=== PATIENT | female | born 1975 | race African-American/Black ===

== ENCOUNTER 2016-08-29 16:06 | Inpatient (IN) | payer MEDICAID, OTHER ==
[2016-08-29] VITALS (9 sets, daily range): BP systolic 141–205; BP diastolic 77–110; PULSE 113–130; RESP 18–37; TEMP 97.5; O2SAT 90–100
[~2016-08-29] VITALS: Ht 160 cm; Wt 87.0 kg
[2016-08-29] MEDS ORDERED: KETAMINE HCL 500 MG/5 ML VIAL IV PUSH ONE (16:30)
[2016-08-29 16:44] LABS: BLOOD GAS BASE EXCESS -6.4 mmol/L (-2-2); BLOOD GAS CARBOXYHEMOGLOBIN 0.8 % (0-4); BLOOD GAS HCO3 17 mmol/L (22-26); BLOOD GAS METHEMOGLOBIN 1.4 % (0-2); BLOOD GAS O2 HGB SATURATION 97 % (90-100); BLOOD GAS OXYGEN CONTENT 18.2 Vol % (12.0-20.0); BLOOD GAS PCO2 23 mmHg (38-42); BLOOD GAS PO2 140 mmHG (61-120); BLOOD GAS TOTAL HGB 13.2 G/DL (12.0-16.0); CRITICAL VALUE YES; DRAW SITE RT RADIAL; FIO2 50 %; NUMBER OF ARTERIAL PUNCTURES 1; OXYGEN DEVICE BiPAP; STAT YES; TEMP CORR TO 98.6; ULNAR PULSE PRESENT; VENT SETTINGS IPAP10/EPAP5
[2016-08-29 16:45] LABS: AUTOMATED NEUTROPHIL # 11.9 TH/MM3 (1.8-7.7); BASOPHIL # 0.1 TH/MM3 (0-0.2); BASOPHIL % 0.7 % (0.0-2.0); EOSINOPHIL # 0.2 TH/MM3 (0-0.4); EOSINOPHIL % 1.5 % (0.0-4.0); HEMATOCRIT 38.5 % (35.0-46.0); HEMO FLAGS DIFF FINAL; LYMPH % 23.2 % (9.0-44.0); MEAN CELL VOLUME 84.8 FL (80.0-100.0); MEAN CORPUSCULAR HEMOGLOBIN 29.4 PG (27.0-34.0); MEAN CORPUSCULAR HGB CONC 34.6 % (32.0-36.0); NEUT % 69.6 % (16.0-70.0); PLATELET COUNT 378 TH/MM3 (150-450); RED BLOOD COUNT 4.54 MIL/MM3 (4.00-5.30); RED CELL DISTRIBUTION WIDTH 14.5 % (11.6-17.2); WHITE BLOOD COUNT 17.1 TH/MM3 (4.0-11.0)
[2016-08-29] MEDS: RESP: ALBUTEROL 2.5 MG/IPRATROPIUM 0.5 MG NEB (SCH) INH ×3 (16:59→23:18)
[2016-08-29 17:09] LABS: BICARBONATE 17.8 MEQ/L (21.0-32.0); POTASSIUM 3.5 MEQ/L (3.5-5.1)
[2016-08-29] MEDS ORDERED: AZITHROMYCIN INJ 500 MG in SODIUM CHLOR 0.9% 250 ML INJ 250 ML IV STA (17:13)
[2016-08-29] MEDS ORDERED: cefTRIAXone INJ 2,000 MG in SODIUM CHLORIDE 0.9% INJ 100 ML IV STA (17:13)
[2016-08-29] MEDS ORDERED: METOPROLOL TARTRATE 5 MG/5 ML VIAL IV PUSH ONE (17:15)
--- NOTE | 2016-08-29 17:21 | RADRPT ---
EXAM DATE/TIME: 08/29/2016 16:35 [facility] COMPARISON: No previous studies available for comparison. INDICATIONS : Shortness of breath, respiratory failure. MEDICAL HISTORY : None. SURGICAL HISTORY : None. ENCOUNTER: Initial ACUITY: 1 day PAIN SCORE: 10/10 LOCATION: Bilateral chest FINDINGS: A single view of the chest demonstrates minimal basilar atelectasis. No dense consolidation. No effus ion. No pneumothorax. CONCLUSION: 1. Minimal basilar atelectasis. No consolidation or effusion. Cuco Beckett MD on August 29, 2016 at 17:18 Board Certified Radiologist. This report was verified electronically.
[2016-08-29] MEDS ORDERED: SODIUM CHLOR 0.9% 1000 ML INJ 1,000 ML IV ONE ×3 (17:40)
--- NOTE | 2016-08-29 17:58 | PD ---
HPI Chief Complaint: Respiratory Distress Time Seen by Provider: 16:19 Travel History International Travel<30 days: No Contact w/Intl Traveler<30days: No Traveled to known affect area: No History of Present Illness HPI 40-year-old female with history of HTN, asthma here with respiratory distress. History limited due to her respiratory distress. From what I can gather between patient and EMS she's been ill since February with "bronchitis". Today while at work she had worsening symptoms with increasing wheezing and shortness of breath and EMS was called. Her O2 sats were always normal the patient had significant respiratory distress with increased work of breathing, wheezing throughout. She was given Solu-Medrol and albuterol 3 in route with no improvement of her symptoms. Patient given 1 g of magnesium IV. When I evaluated patient upon emergency department arrival she is quite dyspneic and speaking only and 2 word sentences. She was emergently room. Patient denies any fevers or chills. She's been having a cough productive primarily of clear phlegm. PFSH Past Medical History Asthma: Yes Respiratory: Yes (asthma) ?: Not Past Surgical History Surgical History: Unable to Obtain Social History Alcohol Use: No Tobacco Use: No Substance Use: No Allergies-Medications (Allergen,Severity, Reaction): Coded Allergies: UNOBTAINABLE (Unverified , 08/29/16) Review of Systems ROS Limitations: Clinical Condition Except as stated in HPI: all other systems reviewed are Neg Physical Exam Exam Limitations: Clinical Condition Narrative GENERAL: female in moderate to severe respiratory distress SKIN: Focused skin assessment warm/dry. HEAD: Normocephalic. EYES: No scleral icterus. No injection or drainage. ENT: Mucous membranes pink and moist. NECK: Supple CARDIOVASCULAR: Tachycardic with heart rate in the 150s, regular rhythm No murmur appreciated. RESPIRATORY: Moderate to severe respiratory distress with increased work of breathing, respiratory rate in the 40s to low 50s, diffuse wheezing and rhonchi with poor air movement GASTROINTESTINAL: Abdomen soft, non-tender, nondistended. MUSCULOSKELETAL: No obvious deformities. No edema. NEUROLOGICAL: Awake and alert. Motor grossly within normal limits. Normal speech. PSYCHIATRIC: Anxious Data Data Last Documented VS Vital Signs Date Time Temp Pulse Resp B/P Pulse Ox O2 Delivery O2 Flow Rate FiO2 08/29/16 16:41 99 50 08/29/16 16:37 BiPAP 08/29/16 16:35 130 37 205/110 08/29/16 16:26 97.5 Orders Complete Blood Count With Diff (08/29/16 16:19) Basic Metabolic Panel (Bmp) (08/29/16 16:19) Arterial Blood Gas (Abg) (08/29/16 16:19) Influenzae A/B Antigen (08/29/16 16:19) Blood Culture (08/29/16 16:19) Iv Access Insert/Monitor (08/29/16 16:19) Electrocardiogram (08/29/16 16:19) Ecg Monitoring (08/29/16 16:19) Oximetry (08/29/16 16:19) Oxygen Administration (08/29/16 16:19) Chest, Single Ap (08/29/16 16:19) Sodium Chloride 0.9% Flush (Ns Flush) (08/29/16 16:30) Albuterol-Ipratropium Neb (Duoneb Neb) (08/29/16 16:30) Resp Bipap / Cpap Non Invas Vt (08/29/16 16:19) Lactic Acid Sepsis Protocol (08/29/16 16:19) Ketamine Inj (Ketalar Inj) (08/29/16 16:30) Ceftriaxone Inj (Rocephin Inj) (08/29/16 17:13) Azithromycin Inj (Zithromax Inj) (08/29/16 17:13) Metoprolol Tartrate Inj (Lopressor Inj) (08/29/16 17:15) Sodium Chlor 0.9% 1000 Ml Inj (Ns 1000 M (08/29/16 17:40) Sodium Chlor 0.9% 1000 Ml Inj (Ns 1000 M (08/29/16 17:40) Sodium Chlor 0.9% 1000 Ml Inj (Ns 1000 M (08/29/16 17:40) Admit Order (Ed Use Only) (08/29/16 17:48) Lorazepam Inj (Ativan Inj) (08/29/16 18:00) Labs Laboratory Tests Test 08/29/16 08/29/16 08/29/16 16:25 16:30 16:45 White Blood Count 17.1 TH/MM3 Red Blood Count 4.54 MIL/MM3 Hemoglobin 13.3 GM/DL Hematocrit 38.5 % Mean Corpuscular Volume 84.8 FL Mean Corpuscular Hemoglobin 29.4 PG Mean Corpuscular Hemoglobin 34.6 % Concent Red Cell Distribution Width 14.5 % Platelet Count 378 TH/MM3 Mean Platelet Volume 7.7 FL Neutrophils (%) (Auto) 69.6 % Lymphocytes (%) (Auto) 23.2 % Monocytes (%) (Auto) 5.0 % Eosinophils (%) (Auto) 1.5 % Basophils (%) (Auto) 0.7 % Neutrophils # (Auto) 11.9 TH/MM3 Lymphocytes # (Auto) 4.0 TH/MM3 Monocytes # (Auto) 0.9 TH/MM3 Eosinophils # (Auto) 0.2 TH/MM3 Basophils # (Auto) 0.1 TH/MM3 CBC Comment DIFF FINAL Differential Comment Sodium Level 136 MEQ/L Potassium Level 3.5 MEQ/L Chloride Level 105 MEQ/L Carbon Dioxide Level 17.8 MEQ/L Anion Gap 13 MEQ/L Blood Urea Nitrogen 8 MG/DL Creatinine 1.31 MG/DL Estimat Glomerular Filtration 45 ML/MIN Rate Random Glucose 162 MG/DL Calcium Level 8.9 MG/DL Blood Gas Puncture Site RT RADIAL Blood Gas Patient Temperature 98.6 Blood Gas HCO3 17 mmol/L Blood Gas Base Excess -6.4 mmol/L Blood Gas Oxygen Saturation 97 % Arterial Blood pH 7.48 Arterial Blood Partial 23 mmHg Pressure CO2 Arterial Blood Partial 140 mmHG Pressure O2 Arterial Blood Oxygen Content 18.2 Vol % Arterial Blood 0.8 % Carboxyhemoglobin Arterial Blood Methemoglobin 1.4 % Blood Gas Hemoglobin 13.2 G/DL Oxygen Delivery Device BiPAP Blood Gas Ventilator Setting IPAP10/EPAP5 Blood Gas Inspired Oxygen 50 % Lactic Acid Level 3.1 mmol/L [facility] Medical Decision Making Medical Screen Exam Complete: Yes Emergency Medical Condition: Yes Medical Record Reviewed: Yes Differential Diagnosis 40-year-old female with history of HTN, asthma here with complaint of "bronchitis" since February and increasing asthma type symptoms today. Differential includes status asthmaticus, pneumonia, bronchitis, influenza, viral syndrome, sepsis, arrhythmia, symptomatic anemia, electrolyte abnormality. Narrative Course Patient was placed on monitor, IV established and blood obtained. Given her work of breathing she was placed on BiPAP with in-line duo nebs 3. Patient was given 20 mg of ketamine IV for bronchodilatation and anxiolysis with BiPAP. ABG was obtained showing pH 7.475, PCO2 22.8, PO2 140, bicarbonate 16.5. Portable chest x-ray obtained that by my read shows no evidence of pulmonary infiltrate. CBC, BMP, lactate, blood cultures obtained and notable for WBC 17.1 with lactate 3.1. Bicarbonate 17.8. Patient was empirically treated with Rocephin and azithromycin, 30 mg/kg normal saline bolus for pulmonary source sepsis. She is improving on BiPAP clinically with decreased work of breathing though she remains tachypneic in the 40s. She remains hypertensive and was given 5 mg of metoprolol, 1 mg Ativan with improvement of vital signs and work of breathing. Given her persistent requirement for BiPAP patient will be admitted to service provider for further management of status asthmaticus and sepsis. Critical Care Narrative Aggregate critical care time was 55 minutes. Time to perform other separately billable procedures was not included in the critical care time. My time did not include minutes spent treating any other patients simultaneously or on activities that did not directly contribute to the patient's treatment. The services I provided to this patient were to treat and/or prevent clinically significant deterioration that could result in: Cardio pulmonary decompensation , , disability I provided critical care services requiring my management, as noted below: Chart data review, documentation time, medication orders and management, vital sign assessments/reviewing monitor data, ordering and reviewing lab tests, ordering and interpreting/reviewing x-rays and diagnostic studies, care of the patient and discussion of the patient with the admitting physicians. Sepsis Criteria SIRS Criteria (2 or more): Heart rate over 90, RR > 20 or PaCO2 < 32, WBC > 64468, < 4000 or > 10% bands Sepsis Criteria (SIRS+source): Infect source susp/known Severe Sepsis (+one): Lactate >2 Criteria Outcome: Meets SIRS criteria, Meets sepsis criteria, Meets severe sepsis criteria Diagnosis Primary Impression: Status asthmaticus Qualified Code: J45.902 - Asthma with status asthmaticus, unspecified asthma severity Additional Impression: Severe sepsis Admitting Information Admitting Physician Requests: Admit Ange Benoit MD Aug 29, 2016 17:58
[2016-08-29] MEDS ORDERED: LORazepam 2 MG/ML VIAL IV PUSH ONE (18:00)
--- NOTE | 2016-08-29 18:27 | HHI.HP ---
HPI Service Critical Care Medicine Primary Care Physician Frankie Hazel, DO Admission Diagnosis status asthmaticus, sepsis Diagnosis: Travel History International Travel<30 Days: No Contact w/Intl Traveler <30 Da: No Traveled to Known Affected Are: No History of Present Illness History obtained from EMR, discussion with Dr. Krause, discussion with patient where she was able to answer with shaking head yes/no and speaking a few words. History is limited due to respiratory condition and BiPAP mask in place. 40 yo F with PMH of asthma, hypertension, obesity who presents to [facility] with shortness of breath. She states that she previously had no respiratory issues until February 2016. She states since then she has had recurrent episodes of "bronchitis" and has been on and off of prednisone tapers under the care of Dr. Dawson White with pulmonology. She states she has had PFTS consistent with asthma. She states she was at work and had just run to a code and became acutely short of breath. She states she is around secondhand smoke at work. She presented to [facility] emergency department with per E VAC with severe bronchospasm. She had normal room air sats upon E VAC arrival. She was given Solu-Medrol and albuterol nebs 3 per E VAC. Upon arrival to the emergency department she had severe wheezing and increased work of breathing. She was placed on BiPAP 10 over 5, given ketamine 20 mill grams IV, given DuoNeb 3, magnesium 1 g. test x-ray demonstrate some basilar atelectasis without consolidation. White blood cell count was 17. Lactic acid 3.1. Creatinine 1.31. She received 2 L normal saline bolus, azithromycin, Rocephin. She remains on BiPAP but reports significant subjective improvement since arrival to the emergency department. She denies any recent travel, leg swelling, personal or family history of thromboembolic disease, surgery. She states she has not been worked up for PE in the past. She did have cough productive of clear/white sputum. She denies fever, hemoptysis. She had pleuritic tight chest pain anteriorly without radiation. She was on a prednisone prior to admission for the last 4 days. Review of Systems ROS Limitations: Clinical Condition Past Family Social History Allergies: Coded Allergies: UNOBTAINABLE (Unverified , 08/29/16) Past Medical History Hypertension Asthma Obesity Her PMD is Dr. Hazel Her town manager is Dr. White Past Surgical History Bilateral tubal ligation Cholecystectomy Cryo-ablation of a cervical lesion Reported Medications She was uncertain of the doses of her medications but states that she will obtain them. She states she takes: Singulair Norvasc 2.5 mill grams by mouth twice a day Breo inhaler DuoNeb Albuterol Es Singulair Prednisone 4 days Family History She has 2 sons that had childhood asthma. She denies any family history of asthma in her parents or siblings. Social History She is a lifetime nonsmoker. She does have secondhand smoke exposure when she visits her mother's house and when she is at work. 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 GENERAL: Obese, well developed female who is sitting up in ED stretch, on Bipap SKIN: Warm and dry. HEAD: Atraumatic. Normocephalic. EYES: Pupils equal and round, 3mm reactive bilaterally. Mild bilateral conjunctival injection ENT: Bipap mask in place. NECK: Trachea midline. No JVD. CARDIOVASCULAR: Regular, tachycardic in the 120s, sinus tach on the monitor.. No murmurs rubs or gallops. RESPIRATORY: Tachypneic but without accessory muscle use. Speaking short sentences on bipap. Clear to auscultation bilaterally, currently without wheezing. No Rales or rhonchi. GASTROINTESTINAL: Abdomen soft, non-tender, nondistended. Bowel sounds present. MUSCULOSKELETAL: Extremities without clubbing, cyanosis, or edema. No obvious deformities. NEUROLOGICAL: Awake and alert. No obvious cranial nerve deficits. Motor grossly within normal limits. Laboratory Laboratory Tests Test 08/29/16 08/29/16 08/29/16 16:25 16:30 16:45 White Blood Count 17.1 Red Blood Count 4.54 Hemoglobin 13.3 Hematocrit 38.5 Mean Corpuscular Volume 84.8 Mean Corpuscular Hemoglobin 29.4 Mean Corpuscular Hemoglobin 34.6 Concent Red Cell Distribution Width 14.5 Platelet Count 378 Mean Platelet Volume 7.7 Neutrophils (%) (Auto) 69.6 Lymphocytes (%) (Auto) 23.2 Monocytes (%) (Auto) 5.0 Eosinophils (%) (Auto) 1.5 Basophils (%) (Auto) 0.7 Neutrophils # (Auto) 11.9 Lymphocytes # (Auto) 4.0 Monocytes # (Auto) 0.9 Eosinophils # (Auto) 0.2 Basophils # (Auto) 0.1 CBC Comment DIFF FINAL Differential Comment Sodium Level 136 Potassium Level 3.5 Chloride Level 105 Carbon Dioxide Level 17.8 Anion Gap 13 Blood Urea Nitrogen 8 Creatinine 1.31 Estimat Glomerular Filtration 45 Rate Random Glucose 162 Calcium Level 8.9 Blood Gas Puncture Site RT RADIAL Blood Gas Patient Temperature 98.6 Blood Gas HCO3 17 Blood Gas Base Excess -6.4 Blood Gas Oxygen Saturation 97 Arterial Blood pH 7.48 Arterial Blood Partial 23 Pressure CO2 Arterial Blood Partial 140 Pressure O2 Arterial Blood Oxygen Content 18.2 Arterial Blood 0.8 Carboxyhemoglobin Arterial Blood Methemoglobin 1.4 Blood Gas Hemoglobin 13.2 Oxygen Delivery Device BiPAP Blood Gas Ventilator Setting IPAP10/EPAP5 Blood Gas Inspired Oxygen 50 Lactic Acid Level 3.1 Date/Time Procedure Status Source Growth 08/29/16 16:45 Aerobic Blood Culture Received Blood Peripheral Pending 08/29/16 16:45 Anaerobic Blood Culture Received Blood Peripheral Pending Result Diagram: 08/29/16 1625 08/29/16 1625 Assessment and Plan Assessment and Plan NEURO: Anxiety Ativan 1 mg IV every 6 hours when necessary anxiety while on Bipap RESP: Acute respiratory failure Acute asthma exacerbation Second hand smoke exposure Bipap 10/5 50%, wean as tolerated DuoNeb every 4 hours. Albuterol every 2 hours as needed. Solu-Medrol 60 Mg IV Every 6 Hours. Continue Singulair Antibiotics As per below CTA Negative for Pulmonary Embolism. There is a very small left upper lobe infiltrate. There is right middle lobe atelectasis Pulmonology consult CV: Hypertension Sinus tachycardia Lactic acidemia secondary to asthma exacerbation Received 3 L normal saline in the emergency department. Was on D5 half NaCl with 20 mg KCl per liter at 70 miles per hour overnight. Will discontinue IV fluids. Continue Norvasc 2.5 mill grams by mouth twice a day. Follow-up 2-D echo. Serial cardiac markers negative GI: Morbid obesity Heart healthy diet FEN/RENAL: Acute kidney injury Higgins inserted to facilitate management of respiratory failure and to monitor intake and output. Follow-up BMP in a.m. ICU electrolyte replacement protocol ID Leukocytosis Leukocytosis may be reactive secondary to steroids. We'll continue empiric coverage with Rocephin and azithromycin for community acquired organisms HEME: D-Dimer Is 0.65. CTA negative as per above. Follow-up bilateral lower extremity ultrasound ENDO: Acute hyperglycemia Low-dose insulin sliding scale AC/hs while on steroids. PROPH: Lovenox 40 mg subcutaneous daily. Protonix 40 mg IV daily for stress ulcer prophylaxis ACCESS: Peripheral IV providing adequate access at this time Full code Patient updated at bedside. Patient re-examined in am. She is on NC, no wheezing, off Bipap since around 8 pm last night. She has been held in ED. Will downgrade to floor bed. Level 3 H and P Cari Badillo MD Aug 29, 2016 18:27
[2016-08-29] MEDS ORDERED: D5-1/2 NS + KCL 20 MEQ INJ 1,000 ML IV SCH (18:42)
[2016-08-29] MEDS ORDERED: CHLORHEXIDINE GLUCONATE 2 % 1 PACK (2 CLOTHS) TOP PRN (18:45)
[2016-08-29] MEDS ORDERED: MISCELLANEOUS NURSING INFORMATION XX SCH (18:45)
[2016-08-29] MEDS ORDERED: POTASSIUM PHOSPHATE INJ 30 MMOL in SODIUM CHLOR 0.9% 250 ML INJ 250 ML IV PRN (18:45)
[2016-08-29] MEDS ORDERED: SODIUM CHLORIDE 0.9% FLUSH 10 ML FLUSH PRN (18:45)
[2016-08-29] MEDS ORDERED: RESP: ALBUTEROL 2.5 MG/3 ML NEB (PRN) INH (18:45)
[2016-08-29] MEDS ORDERED: MORPHINE SULFATE 4 MG/ML INJ IV PRN (18:45)
[2016-08-29] MEDS ORDERED: MAGNESIUM SULFATE INJ 4 GM in SODIUM CHLORIDE 0.9% INJ 92 ML IV PRN (18:45)
[2016-08-29] MEDS ORDERED: SODIUM PHOSPHATE INJ 30 MMOL in SODIUM CHLOR 0.9% 250 ML INJ 240 ML IV PRN (18:45)
[2016-08-29] MEDS ORDERED: POTASSIUM CHLOR 40 MEQ PREMIX 100 ML IV PRN ×2 (18:45)
[2016-08-29] MEDS ORDERED: MAGNESIUM OXIDE 400 MG TAB PO PRN (18:45)
[2016-08-29] MEDS ORDERED: POTASSIUM PHOSPHATE MONOBASIC 500 MG TAB PO/TUBE PRN (18:45)
[2016-08-29] MEDS ORDERED: POTASSIUM CHLORIDE 25 MEQ EFFERVESCENT TAB PO PRN (18:45)
[2016-08-29] MEDS ORDERED: POTASSIUM PHOSPHATE MONOBASIC 500 MG TAB PO PRN (18:45)
[2016-08-29] MEDS ORDERED: POTASSIUM CHLOR 20 MEQ PREMIX 100 ML IV PRN ×2 (18:45)
[2016-08-29] MEDS ORDERED: ACETAMINOPHEN 325 MG TAB PO PRN (18:45)
[2016-08-29] MEDS ORDERED: MAGNESIUM SULFATE INJ 2 GM in SODIUM CHLORIDE 0.9% INJ 96 ML IV PRN (18:45)
[2016-08-29 19:02] LABS: LACTIC ACID GHOST NOT REPORTABLE
[2016-08-29] MEDS: SODIUM CHLORIDE 0.9% FLUSH 10 ML FLUSH SCH (20:21)
[2016-08-29] MEDS: DOCUSATE SODIUM 100 MG CAP PO SCH (20:21)
[2016-08-29] MEDS: methylPREDNISolone SOD SUCC 125 MG/2 ML VIAL IV PUSH SCH (20:32)
[2016-08-29] MEDS ORDERED: ASPIRIN 81 MG CHEW TAB CHEW ONE (22:00)
[2016-08-29] MEDS ORDERED: IOHEXOL 350 MG/ML 10 ML VIAL (for RAD DIAG) IV ONE (23:09)
[2016-08-29 23:18] LABS: CREATINE KINASE 90 U/L (26-192)
--- NOTE | 2016-08-29 23:22 | RADRPT ---
EXAM DATE/TIME: 08/29/2016 23:06 [facility] COMPARISON: No previous studies available for comparison. INDICATIONS : Shortness of breath. IV CONTRAST: 75 cc Omnipaque 350 (iohexol) IV RADIATION DOSE: 23.01 CTDIvol (mGy) MEDICAL HISTORY : Hypertension. Asthma. SURGICAL HISTORY : None. ENCOUNTER: Initial ACUITY: 1 day PAIN SCALE: 0/10 LOCATION: chest TECHNIQUE: Volumetric scanning of the chest was performed using a pulmonary embolism protocol MIP images were re constructed. Using automated exposure control and adjustment of the mA and/or kV according to patien t size, radiation dose was kept as low as reasonably achievable to obtain optimal diagnostic quality images. FINDINGS: PULMONARY ARTERIES: No filling defects are seen in the pulmonary arteries through the segmental level. LUNGS: There is partial collapse of the right middle lobe including the entire lateral segment. Small rounde d air ground glass infiltrate left upper lobe measuring 2 cm across previous small area of pneumonia. No concerning pulmonary nodule is visualized. PLEURAE: There is no pleural thickening or pleural effusion. MEDIASTINUM: There is good visualization of the great vessels of the middle mediastinum. No evidence of mediastin al or hilar adenopathy/mass. MUSCULOSKELETAL: Within normal limits for patient age. MISCELLANEOUS: The visualized upper abdominal organs demonstrate no acute abnormality. CONCLUSION: Normal examination of the pulmonary arteries. Partial collapse of the right middle lobe. Small infilt rate left upper lobe could be pneumonia or atelectasis. Jose Begum MD on August 29, 2016 at 23:18 Board Certified Radiologist. This report was verified electronically.
[2016-08-30] VITALS (12 sets, daily range): BP systolic 133–160; BP diastolic 67–91; PULSE 98–121; RESP 17–20; TEMP 98–98.1; O2SAT 93–97
[2016-08-30] MEDS: RESP: ALBUTEROL 2.5 MG/IPRATROPIUM 0.5 MG NEB (SCH) INH ×5 (02:57→19:37)
[2016-08-30] MEDS: methylPREDNISolone SOD SUCC 125 MG/2 ML VIAL IV PUSH SCH ×4 (03:05→20:02)
[2016-08-30] MEDS: CHLORHEXIDINE GLUCONATE 2 % 1 PACK (2 CLOTHS) TOP SCH (03:51)
[2016-08-30 04:42] LABS: AUTOMATED NEUTROPHIL # 18.2 TH/MM3 (1.8-7.7); BASOPHIL % 0.2 % (0.0-2.0); EOSINOPHIL % 0.1 % (0.0-4.0); HEMATOCRIT 34.8 % (35.0-46.0); HEMO FLAGS DIFF FINAL; LYMPH % 7.7 % (9.0-44.0); LYMPHOCYTE # 1.6 TH/MM3 (1.0-4.8); MEAN CELL VOLUME 85.8 FL (80.0-100.0); MEAN CORPUSCULAR HEMOGLOBIN 28.4 PG (27.0-34.0); MONO % 2.7 % (0.0-8.0); NEUT % 89.3 % (16.0-70.0); PLATELET COUNT 297 TH/MM3 (150-450); RED BLOOD COUNT 4.06 MIL/MM3 (4.00-5.30); RED CELL DISTRIBUTION WIDTH 14.2 % (11.6-17.2); WHITE BLOOD COUNT 20.3 TH/MM3 (4.0-11.0)
[2016-08-30 04:56] LABS: ALKALINE PHOSPHATASE 132 U/L (45-117); TOTAL BILIRUBIN ADULT 0.3 MG/DL (0.2-1.0)
[2016-08-30] MEDS: cefTRIAXone INJ 1,000 MG in SODIUM CHLORIDE 0.9% INJ 100 ML IV SCH ×2 (05:17→17:10)
[2016-08-30 05:23] LABS: ALT (GPT) 30 U/L (10-53); ANION GAP 9 MEQ/L (5-15); AST (GOT) 16 U/L (15-37); BICARBONATE 19.7 MEQ/L (21.0-32.0); BLOOD UREA NITROGEN 9 MG/DL (7-18); CHLORIDE 107 MEQ/L (98-107); GLOMERULAR FILTRATION RATE 76 ML/MIN (>89); SODIUM (NA) 136 MEQ/L (136-145)
[2016-08-30 06:31] LABS: CREATINE KINASE 88 U/L (26-192)
[2016-08-30] MEDS ORDERED: GLUCAGON 1 MG/ML VIAL OTHER PRN (08:00)
[2016-08-30] MEDS ORDERED: Vancomycin Consult Pharmacy 1 EA OTHER SCH (08:00)
[2016-08-30] MEDS ORDERED: DEXTROSE 50% IN WATER 50 ML VIAL(D50) IV PUSH PRN (08:00)
[2016-08-30] MEDS: DOCUSATE SODIUM 100 MG CAP PO SCH ×2 (08:48→20:01)
[2016-08-30] MEDS: PANTOPRAZOLE SODIUM 40 MG VIAL IV SCH (08:50)
[2016-08-30] MEDS: ENOXAPARIN SODIUM 40 MG/0.4 ML SYRINGE SQ SCH (08:56)
[2016-08-30] MEDS: amLODIPine BESYLATE 5 MG TAB PO SCH ×2 (08:56→20:00)
[2016-08-30] MEDS ORDERED: PILL SPLITTER OTHER PRN (09:00)
[2016-08-30] MEDS: SODIUM CHLORIDE 0.9% FLUSH 10 ML FLUSH SCH ×2 (09:03→20:01)
[2016-08-30] MEDS: INSULIN ASPART SUPPLEMENTAL SCALE SQ SCH ×3 (10:41→20:13)
--- NOTE | 2016-08-30 11:45 | EKG ---
Date Performed: 08/29/2016 Time Performed: 17:15:31 PTAGE: 40 years EKG: SINUS TACHYCARDIA WITH SHORT [place] INTERVAL, POSSIBLE ATRIAL FLUTTER ABNORMAL RHYTHM ECG NO PREVIOUS TRACING DOCTOR: Isaac Rich Interpretating Date/Time 08/30/2016 11:44:08
--- NOTE | 2016-08-30 12:07 | RADRPT ---
EXAM DATE/TIME: 08/30/2016 09:51 [facility] COMPARISON: No previous studies available for comparison. INDICATIONS : Thrombosis. Respiratory distress. MEDICAL HISTORY : Asthma. Hypertension. SURGICAL HISTORY : None. ENCOUNTER: Initial ACUITY: 4 - 6 months PAIN SCORE: 0/10 LOCATION: Bilateral leg. TECHNIQUE: Venous ultrasound of the left and right leg was performed from the inguinal ligament to the proximal calf. Real-time, color Doppler and spectral tracing, compression and augmentation techniques were us ed. FINDINGS: RIGHT LEG: There is normal compressibility of the deep venous system from the inguinal region to the proximal ca lf. No echogenic clot is seen in the lumen of the common femoral, femoral, popliteal, and posterior tibial veins. There is a normal response of the venous system to proximal and distal augmentation an d respiration. LEFT LEG: There is normal compressibility of the deep venous system from the inguinal region to the proximal ca lf. No echogenic clot is seen in the lumen of the common femoral, femoral, popliteal, and posterior tibial veins. There is a normal response of the venous system to proximal and distal augmentation an d respiration. CONCLUSION: Normal examination. Meg Harris MD on August 30, 2016 at 12:05 Board Certified Radiologist. This report was verified electronically.
[2016-08-30 12:37] LABS: CREATINE KINASE 90 U/L (26-192)
--- NOTE | 2016-08-30 15:15 | HHI.HP ---
History of Present Illness Primary Care Physician Frankie Hazel, DO Admission Diagnosis status asthmaticus, sepsis Diagnoses: History of Present Illness history of asthma problems with breathing/bronchitis x 2-3 mos treatd as an op with abx and steroids Sepsis Criteria Sepsis Criteria (SIRS+source): Infect source susp/known Review of Systems Respiratory: COMPLAINS OF: Cough, Wheezing Past Family Social History Allergies: Coded Allergies: UNOBTAINABLE (Unverified , 08/29/16) Past Medical History asthma hypertension Reported Medications Current Medications Medications (Trade) Dose Ordered Sig/Lady Route PRN Reason Start Time Stop Time Status Last Admin Dose Admin Sodium Chloride (NS Flush) 2 ml UNSCH PRN IVF FLUSH AFTER USING IV ACCESS 08/29/16 16:30 Lorazepam 1 mg 1 mg Q6H PRN IV PUSH ANXIETY 08/29/16 18:45 Potassium Chloride 100 ml @ 50 mls/hr Q2H PRN IV For Potassium 2.8 - 3.2 mEq/L 08/29/16 18:45 Potassium Chloride (KCl 20 Meq Premix Inj) 100 ml @ 50 mls/hr Q2H PRN IV For Potassium 2.8 - 3.2 mEq/L 08/29/16 18:45 Potassium Bicarb/ Potassium Chloride 50 meq 50 meq UNSCH PRN PO For Potassium 3.3 - 3.5 mEq/L 08/29/16 18:45 Potassium Chloride 100 ml @ 25 mls/hr UNSCH PRN IV For Potassium 3.3 - 3.5 mEq/L 08/29/16 18:45 Potassium Chloride 100 ml @ 50 mls/hr Q2H PRN IV For Potassium 3.3 - 3.5 mEq/L 08/29/16 18:45 Magnesium Sulfate/ Sodium Chloride (Magnesium Sulfate Inj/NS Inj) 100 ml @ 50 mls/hr UNSCH PRN IV For Magnesium 0.9 - 1.1 mg/dL 08/29/16 18:45 Magnesium Oxide 800 mg 800 mg UNSCH PRN PO For Magnesium 1.2 - 1.6 mg/dL 08/29/16 18:45 Magnesium Sulfate/ Sodium Chloride (Magnesium Sulfate Inj/NS Inj) 100 ml @ 50 mls/hr UNSCH PRN IV For Magnesium 1.2 - 1.6 mg/dL 08/29/16 18:45 Potassium Phosphate 2000 mg 2,000 mg Q4H PRN PO For Phosphorus < 2.5 mg/dL 08/29/16 18:45 Sodium Phosphate/ Sodium Chloride (Sodium Phosphate Inj/NS 250 ml Inj) 250 ml @ 42 mls/hr UNSCH PRN IV For Phosphorus < 2.5 mg/dL 08/29/16 18:45 Potassium Phosphate 2000 mg 2,000 mg UNSCH PRN PO/TUBE SEE LABEL COMMENTS 08/29/16 18:45 Potassium Phosphate/Sodium Chloride (Potassium Phosphate Inj/NS 250 ml Inj) 260 ml @ 42 mls/hr UNSCH PRN IV SEE LABEL COMMENTS 08/29/16 18:45 Sodium Chloride (NS Flush) 2 ml UNSCH PRN .XX FLUSH AFTER USING IV ACCESS 08/29/16 18:45 Sodium Chloride (NS Flush) 2 ml BID .XX 08/29/16 21:00 08/30/16 09:03 Acetaminophen (Tylenol) 650 mg Q6H PRN PO PAIN 1-10 AND/OR FEVER >101F 08/29/16 18:45 Acetaminophen/ Hydrocodone Bitart ([place] 5-325 Mg) 1 tab Q4H PRN PO PAIN SCALE 1 TO 5 08/29/16 18:45 Morphine Sulfate (Morphine Inj) 2 mg Q2H PRN IV PAIN SCALE 6 TO 10 08/29/16 18:45 Pantoprazole Sodium (Protonix Inj) 40 mg DAILY IV 08/30/16 09:00 08/30/16 08:50 Ondansetron HCl (Zofran Inj) 4 mg Q6H PRN IV NAUSEA OR VOMITING 08/29/16 18:45 Docusate Sodium (Colace) 100 mg BID PO 08/29/16 21:00 08/30/16 08:48 Miscellaneous Information 1 Q361D XX 08/29/16 18:45 Chlorhexidine Gluconate (Chlorhexidine 2% Cloth) 3 pack Taper DAILY@04 TOP 08/30/16 04:00 08/26/17 03:59 Chlorhexidine Gluconate (Chlorhexidine 2% Cloth) 3 pack UNSCH PRN TOP HYGIENIC CARE 08/29/16 18:45 Methylprednisolone Sodium Succinate (SoluMEDROL INJ) 60 mg Q6H IV PUSH 08/29/16 20:00 08/30/16 08:52 Azithromycin 500 mg 500 mg DAILY PO 08/30/16 17:00 Ceftriaxone Sodium/Sodium Chloride (Rocephin Inj/NS Inj) 100 ml @ 200 mls/hr Q12H IV 08/30/16 05:00 08/30/16 05:17 Dextrose (D50w (Vial) Inj) 25 ml UNSCH PRN IV PUSH HYPOGLYCEMIA-SEE COMMENTS 08/30/16 08:00 Glucagon (Glucagon Inj) 1 mg UNSCH PRN OTHER HYPOGLYCEMIA-SEE COMMENTS 08/30/16 08:00 Amlodipine Besylate (Norvasc) 2.5 mg BID PO 08/30/16 09:00 08/30/16 08:56 Montelukast Sodium (Singulair) 10 mg HS PO 08/30/16 21:00 Enoxaparin Sodium (Lovenox Inj) 40 mg Q24H SQ 08/30/16 09:00 08/30/16 08:56 Miscellaneous (Pill Splitter) 1 ea UNSCH PRN OTHER SEE LABEL COMMENTS 08/30/16 09:00 Pneumococcal Polyvalent Vaccine (Pneumovax-23 Inj) 25 mcg ONCE ONCE IM 08/31/16 10:00 08/31/16 10:01 Active Ordered Medications Current Medications Medications (Trade) Dose Ordered Sig/Lady Route PRN Reason Start Time Stop Time Status Last Admin Dose Admin Sodium Chloride (NS Flush) 2 ml UNSCH PRN IVF FLUSH AFTER USING IV ACCESS 08/29/16 16:30 Lorazepam 1 mg 1 mg Q6H PRN IV PUSH ANXIETY 08/29/16 18:45 Potassium Chloride 100 ml @ 50 mls/hr Q2H PRN IV For Potassium 2.8 - 3.2 mEq/L 08/29/16 18:45 Potassium Chloride (KCl 20 Meq Premix Inj) 100 ml @ 50 mls/hr Q2H PRN IV For Potassium 2.8 - 3.2 mEq/L 08/29/16 18:45 Potassium Bicarb/ Potassium Chloride 50 meq 50 meq UNSCH PRN PO For Potassium 3.3 - 3.5 mEq/L 08/29/16 18:45 Potassium Chloride 100 ml @ 25 mls/hr UNSCH PRN IV For Potassium 3.3 - 3.5 mEq/L 08/29/16 18:45 Potassium Chloride 100 ml @ 50 mls/hr Q2H PRN IV For Potassium 3.3 - 3.5 mEq/L 08/29/16 18:45 Magnesium Sulfate/ Sodium Chloride (Magnesium Sulfate Inj/NS Inj) 100 ml @ 50 mls/hr UNSCH PRN IV For Magnesium 0.9 - 1.1 mg/dL 08/29/16 18:45 Magnesium Oxide 800 mg 800 mg UNSCH PRN PO For Magnesium 1.2 - 1.6 mg/dL 08/29/16 18:45 Magnesium Sulfate/ Sodium Chloride (Magnesium Sulfate Inj/NS Inj) 100 ml @ 50 mls/hr UNSCH PRN IV For Magnesium 1.2 - 1.6 mg/dL 08/29/16 18:45 Potassium Phosphate 2000 mg 2,000 mg Q4H PRN PO For Phosphorus < 2.5 mg/dL 08/29/16 18:45 Sodium Phosphate/ Sodium Chloride (Sodium Phosphate Inj/NS 250 ml Inj) 250 ml @ 42 mls/hr UNSCH PRN IV For Phosphorus < 2.5 mg/dL 08/29/16 18:45 Potassium Phosphate 2000 mg 2,000 mg UNSCH PRN PO/TUBE SEE LABEL COMMENTS 08/29/16 18:45 Potassium Phosphate/Sodium Chloride (Potassium Phosphate Inj/NS 250 ml Inj) 260 ml @ 42 mls/hr UNSCH PRN IV SEE LABEL COMMENTS 08/29/16 18:45 Sodium Chloride (NS Flush) 2 ml UNSCH PRN .XX FLUSH AFTER USING IV ACCESS 08/29/16 18:45 Sodium Chloride (NS Flush) 2 ml BID .XX 08/29/16 21:00 08/30/16 09:03 Acetaminophen (Tylenol) 650 mg Q6H PRN PO PAIN 1-10 AND/OR FEVER >101F 08/29/16 18:45 Acetaminophen/ Hydrocodone Bitart ([place] 5-325 Mg) 1 tab Q4H PRN PO PAIN SCALE 1 TO 5 08/29/16 18:45 Morphine Sulfate (Morphine Inj) 2 mg Q2H PRN IV PAIN SCALE 6 TO 10 08/29/16 18:45 Pantoprazole Sodium (Protonix Inj) 40 mg DAILY IV 08/30/16 09:00 08/30/16 08:50 Ondansetron HCl (Zofran Inj) 4 mg Q6H PRN IV NAUSEA OR VOMITING 08/29/16 18:45 Docusate Sodium (Colace) 100 mg BID PO 08/29/16 21:00 08/30/16 08:48 Miscellaneous Information 1 Q361D XX 08/29/16 18:45 Chlorhexidine Gluconate (Chlorhexidine 2% Cloth) 3 pack Taper DAILY@04 TOP 08/30/16 04:00 08/26/17 03:59 Chlorhexidine Gluconate (Chlorhexidine 2% Cloth) 3 pack UNSCH PRN TOP HYGIENIC CARE 08/29/16 18:45 Methylprednisolone Sodium Succinate (SoluMEDROL INJ) 60 mg Q6H IV PUSH 08/29/16 20:00 08/30/16 08:52 Azithromycin 500 mg 500 mg DAILY PO 08/30/16 17:00 Ceftriaxone Sodium/Sodium Chloride (Rocephin Inj/NS Inj) 100 ml @ 200 mls/hr Q12H IV 08/30/16 05:00 08/30/16 05:17 Dextrose (D50w (Vial) Inj) 25 ml UNSCH PRN IV PUSH HYPOGLYCEMIA-SEE COMMENTS 08/30/16 08:00 Glucagon (Glucagon Inj) 1 mg UNSCH PRN OTHER HYPOGLYCEMIA-SEE COMMENTS 08/30/16 08:00 Amlodipine Besylate (Norvasc) 2.5 mg BID PO 08/30/16 09:00 08/30/16 08:56 Montelukast Sodium (Singulair) 10 mg HS PO 08/30/16 21:00 Enoxaparin Sodium (Lovenox Inj) 40 mg Q24H SQ 08/30/16 09:00 08/30/16 08:56 Miscellaneous (Pill Splitter) 1 ea UNSCH PRN OTHER SEE LABEL COMMENTS 08/30/16 09:00 Pneumococcal Polyvalent Vaccine (Pneumovax-23 Inj) 25 mcg ONCE ONCE IM 08/31/16 10:00 08/31/16 10:01 Family History father had diabetes mother had chf Social History non smoker occ drinker Physical Exam Vital Signs Vital Signs Date Time Temp Pulse Resp B/P Pulse Ox O2 Delivery O2 Flow Rate FiO2 08/30/16 11:30 121 18 153/75 96 Room Air 08/30/16 07:30 108 18 143/71 96 Nasal Cannula 3 08/30/16 07:29 96 Nasal Cannula 3.00 08/30/16 06:00 107 18 149/87 97 Nasal Cannula 3 08/30/16 05:00 111 18 137/72 95 Nasal Cannula 3 08/30/16 03:00 112 17 133/67 96 Nasal Cannula 3 08/30/16 01:00 109 17 146/91 97 Nasal Cannula 3 08/29/16 23:18 116 30 148/90 97 Nasal Cannula 4 08/29/16 21:50 113 18 141/84 100 Nasal Cannula 4 08/29/16 19:55 124 19 167/77 95 Aerosol Mask 08/29/16 19:51 97 Nasal Cannula 2.00 08/29/16 19:22 124 22 163/90 96 Nasal Cannula 4 08/29/16 18:22 114 30 145/90 98 BiPAP 50 08/29/16 16:41 99 50 08/29/16 16:37 99 BiPAP 50 08/29/16 16:35 130 37 205/110 98 BiPAP 50 08/29/16 16:26 97.5 120 34 200/104 90 Physical Exam GENERAL: This is a well-nourished, well-developed patient, in no apparent distress. SKIN: No rashes, ecchymoses or lesions. Cool and dry. HEAD: Atraumatic. Normocephalic. No temporal or scalp tenderness. EYES: Pupils equal round and reactive. Extraocular motions intact. No scleral icterus. No injection or drainage. ENT: Nose without bleeding, purulent drainage or septal hematoma. Throat without erythema, tonsillar hypertrophy or exudate. Uvula midline. Airway patent. NECK: Trachea midline. No JVD or lymphadenopathy. Supple, nontender, no meningeal signs. CARDIOVASCULAR: Regular rate and rhythm without murmurs, gallops, or rubs. RESPIRATORY: mildly diminished bilaterally with trace wheeze GASTROINTESTINAL: Abdomen soft, non-tender, nondistended. No hepato-splenomegaly , or palpable masses. No guarding. MUSCULOSKELETAL: Extremities without clubbing, cyanosis, or edema. No joint tenderness, effusion, or edema noted. No calf tenderness. Negative Homans sign bilaterally. NEUROLOGICAL: Awake and alert. Cranial nerves II through XII intact. Motor and sensory grossly within normal limits. Five out of 5 muscle strength in all muscle groups. Normal speech. Laboratory Laboratory Tests Test 08/29/16 08/29/16 08/29/16 08/29/16 16:25 16:30 16:45 19:15 White Blood Count 17.1 Red Blood Count 4.54 Hemoglobin 13.3 Hematocrit 38.5 Mean Corpuscular Volume 84.8 Mean Corpuscular Hemoglobin 29.4 Mean Corpuscular Hemoglobin 34.6 Concent Red Cell Distribution Width 14.5 Platelet Count 378 Mean Platelet Volume 7.7 Neutrophils (%) (Auto) 69.6 Lymphocytes (%) (Auto) 23.2 Monocytes (%) (Auto) 5.0 Eosinophils (%) (Auto) 1.5 Basophils (%) (Auto) 0.7 Neutrophils # (Auto) 11.9 Lymphocytes # (Auto) 4.0 Monocytes # (Auto) 0.9 Eosinophils # (Auto) 0.2 Basophils # (Auto) 0.1 CBC Comment DIFF FINAL Differential Comment Sodium Level 136 Potassium Level 3.5 Chloride Level 105 Carbon Dioxide Level 17.8 Anion Gap 13 Blood Urea Nitrogen 8 Creatinine 1.31 Estimat Glomerular Filtration 45 Rate Random Glucose 162 Calcium Level 8.9 Blood Gas Puncture Site RT RADIAL Blood Gas Patient Temperature 98.6 Blood Gas HCO3 17 Blood Gas Base Excess -6.4 Blood Gas Oxygen Saturation 97 Arterial Blood pH 7.48 Arterial Blood Partial 23 Pressure CO2 Arterial Blood Partial 140 Pressure O2 Arterial Blood Oxygen Content 18.2 Arterial Blood 0.8 Carboxyhemoglobin Arterial Blood Methemoglobin 1.4 Blood Gas Hemoglobin 13.2 Oxygen Delivery Device BiPAP Blood Gas Ventilator Setting [id number]/[id number] Blood Gas Inspired Oxygen 50 Lactic Acid Level 3.1 2.8 D-Dimer Quantitative (PE/DVT) 0.65 Test 08/29/16 08/30/16 08/30/16 22:10 04:23 11:34 Total Creatine Kinase 90 88 90 Troponin I LESS THAN 0.02 LESS THAN 0.02 LESS THAN 0.02 White Blood Count 20.3 Red Blood Count 4.06 Hemoglobin 11.5 Hematocrit 34.8 Mean Corpuscular Volume 85.8 Mean Corpuscular Hemoglobin 28.4 Mean Corpuscular Hemoglobin 33.0 Concent Red Cell Distribution Width 14.2 Platelet Count 297 Mean Platelet Volume 7.3 Neutrophils (%) (Auto) 89.3 Lymphocytes (%) (Auto) 7.7 Monocytes (%) (Auto) 2.7 Eosinophils (%) (Auto) 0.1 Basophils (%) (Auto) 0.2 Neutrophils # (Auto) 18.2 Lymphocytes # (Auto) 1.6 Monocytes # (Auto) 0.5 Eosinophils # (Auto) 0.0 Basophils # (Auto) 0.0 CBC Comment DIFF FINAL Differential Comment Sodium Level 136 Potassium Level 4.0 Chloride Level 107 Carbon Dioxide Level 19.7 Anion Gap 9 Blood Urea Nitrogen 9 Creatinine 0.98 Estimat Glomerular Filtration 76 Rate Random Glucose 210 Calcium Level 7.9 Total Bilirubin 0.3 Aspartate Amino Transf 16 (AST/SGOT) Alanine Aminotransferase 30 (ALT/SGPT) Alkaline Phosphatase 132 Total Protein 7.7 Albumin 3.2 Date/Time Procedure Status Source Growth 08/30/16 06:30 Influenza Types A,B Antigen (RICHELLE) - Final Complete Nasal Aspirate NEGATIVE FOR FLU A AND B ANTIGEN.... 08/29/16 16:45 Aerobic Blood Culture - Preliminary Resulted Blood Peripheral NO GROWTH IN 1 DAY 08/29/16 16:45 Anaerobic Blood Culture - Preliminary Resulted Blood Peripheral NO GROWTH IN 1 DAY Result Diagram: 08/30/16 0423 08/30/16 0423 Imaging Last 24 hours Impressions Lower Extremity Ultrasound 08/30/16 0600 Signed Impressions: Service Date/Time: Tuesday, August 30, 2016 09:51 - CONCLUSION: Normal examination. K. Shekhar Harris MD Chest X-Ray 08/29/16 1619 Signed Impressions: Service Date/Time: Monday, August 29, 2016 16:35 - CONCLUSION: 1. Minimal basilar atelectasis. No consolidation or effusion. Cuco Beckett MD Course improved in ED Assessment and Plan Problem List: (1) Status asthmaticus Status: Resolved (2) Severe sepsis Status: Acute Plan: admission with antibiotic therapy Problem Qualifiers (1) Status asthmaticus: Qualified Code: J45.902 - Asthma with status asthmaticus, unspecified asthma severity Frankie Hazel DO Aug 30, 2016 15:14
[2016-08-30] MEDS: AZITHROMYCIN 250 MG TAB PO SCH (17:09)
--- NOTE | 2016-08-30 19:01 | EC ---
Study Study Date:08/30/2016 STUDY CONCLUSIONS SUMMARY LEFT VENTRICLE: The cavity size was normal. Wall thickness was at the upper limits of normal. Systolic function was normal. The estimated ejection fraction was in the range of 65% to 70%. Wall motion was normal; there were no regional wall motion abnormalities. If LV function is below 40, please consider prescribing an ACEI or ARB or document rationale for non-use. PROCEDURE DATA STUDY STATUS: Elective. Procedure: Transthoracic echocardiography. Image quality was good. Scanning was performed from the parasternal, apical, and subcostal acoustic windows. Study completion: The patient tolerated the procedure well. Transthoracic echocardiography. M-mode, complete 2D, complete spectral Doppler, and color Doppler. Patient status: Inpatient. CARDIAC ANATOMY LEFT VENTRICLE: The cavity size was normal. Wall thickness was at the upper limits of normal. Systolic function was normal. The estimated ejection fraction was in the range of 65% to 70%. Wall motion was normal; there were no regional wall motion abnormalities. AORTIC VALVE: Trileaflet. Doppler: There was no stenosis. No significant regurgitation. Peak gradient: 13mm Hg (S). MITRAL VALVE: The valve appears to be grossly normal. Doppler: There was no evidence for stenosis. No significant regurgitation. Peak gradient: 2mm Hg (D). LEFT ATRIUM: The atrium was normal in size. RIGHT VENTRICLE: The cavity size was normal. Systolic function was normal. PULMONIC VALVE: Not well visualized. Doppler: There was no evidence for stenosis. No significant regurgitation. TRICUSPID VALVE: The valve appears to be grossly normal. Doppler: There was no evidence for stenosis. Trace regurgitation. PERICARDIUM: There was no pericardial effusion. BASIC MEASUREMENTS ADULT Normal Left ventricle LV internal dimension, ED, chordal level, *37.6 mm 43-52 PLAX LV internal dimension, ES, chordal level, 24.3 mm 23-38 PLAX Fractional shortening, chordal level, PLAX 35 % >29 LV posterior wall thickness, ED 8.42 mm IVS/LVPW ratio, ED *1.4 <1.3 Ventricular septum Septal thickness, ED 11.8 mm Left atrium Anterior-posterior dimension 29 mm Right ventricle RV internal dimension, ED, PLAX 20.6 mm 19-38 DOPPLER MEASUREMENTS ADULT Normal Aortic valve Peak velocity, S 179 cm/s Peak gradient, S 13 mm Hg Mitral valve Peak E-wave velocity 77.1 cm/s Peak A-wave velocity 98.1 cm/s Peak gradient, D 2 mm Hg Peak E/A ratio 0.8 Tricuspid valve Regurgitant peak velocity 200 cm/s Peak RV-RA gradient, S 16 mm Hg Maximal regurgitant velocity 200 cm/s LEGEND: Mean values are shown as u=mean value. Asterisk (*) curry values outside specified normal range. Prepared and signed by Gen Reveles [id number]
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
[2016-08-30] MEDS: MONTELUKAST SODIUM 10 MG TAB PO SCH (20:00)
[2016-08-30] MEDS: ONDANSETRON HCL 4 MG/2 ML VIAL IV PRN (20:03)
[2016-08-30] MEDS: LORazepam 2 MG/ML VIAL IV PUSH PRN (20:04)
[2016-08-31] VITALS (11 sets, daily range): BP systolic 133–159; BP diastolic 72–93; PULSE 93–117; RESP 16–21; TEMP 98–99.3; O2SAT 94–97
[2016-08-31] MEDS: RESP: ALBUTEROL 2.5 MG/IPRATROPIUM 0.5 MG NEB (SCH) INH ×7 (00:04→23:58)
[2016-08-31] MEDS: methylPREDNISolone SOD SUCC 125 MG/2 ML VIAL IV PUSH SCH ×4 (02:28→20:00)
[2016-08-31] MEDS: CHLORHEXIDINE GLUCONATE 2 % 1 PACK (2 CLOTHS) TOP SCH (04:00)
[2016-08-31] MEDS: cefTRIAXone INJ 1,000 MG in SODIUM CHLORIDE 0.9% INJ 100 ML IV SCH ×2 (05:07→17:48)
[2016-08-31] MEDS: INSULIN ASPART SUPPLEMENTAL SCALE SQ SCH ×4 (05:13→21:00)
[2016-08-31] MEDS: amLODIPine BESYLATE 5 MG TAB PO SCH ×2 (08:18→21:00)
[2016-08-31] MEDS: DOCUSATE SODIUM 100 MG CAP PO SCH ×2 (08:18→21:00)
[2016-08-31] MEDS: PANTOPRAZOLE SODIUM 40 MG VIAL IV SCH (08:18)
[2016-08-31] MEDS: ENOXAPARIN SODIUM 40 MG/0.4 ML SYRINGE SQ SCH (08:19)
[2016-08-31] MEDS: SODIUM CHLORIDE 0.9% FLUSH 10 ML FLUSH SCH ×2 (08:25→21:00)
[2016-08-31] MEDS: AZITHROMYCIN 250 MG TAB PO SCH (09:24)
[2016-08-31] MEDS: LORazepam 2 MG/ML VIAL IV PUSH PRN (09:25)
[2016-08-31] MEDS: ACETAMINOPHEN/HYDROcodone 325 MG/5 MG TAB PO PRN (09:25)
[2016-08-31] MEDS ORDERED: PNEUMOCOCCAL POLYVALENT INJ 25 MCG/0.5 ML SYR IM ONE (10:00)
--- NOTE | 2016-08-31 11:07 | HHI.PR ---
Subjective Remarks Patient seen at bedside. Reports tightness and SOB 35 % venti mask. No CP reported. Objective Vital Signs Date Time Temp Pulse Resp B/P Pulse Ox O2 Delivery O2 Flow Rate FiO2 08/31/16 09:07 95 Venturi Mask 35 08/31/16 07:15 108 08/31/16 06:15 98.2 96 18 148/88 95 08/31/16 00:09 99.1 113 18 133/85 97 08/30/16 20:58 98.0 118 18 160/91 95 08/30/16 20:21 98 08/30/16 19:37 96 Nasal Cannula 3.00 08/30/16 18:34 93 08/30/16 16:00 98.1 112 20 145/89 94 08/30/16 11:30 121 18 153/75 96 Room Air I/O 08/30/16 08/30/16 08/30/16 08/31/16 08/31/16 08/31/16 07:00 15:00 23:00 07:00 15:00 23:00 Output Total 3000 ml 1000 ml Balance -3000 ml -1000 ml Output Urine Total 3000 ml 1000 ml Result Diagram: 08/30/16 0423 08/30/16 0423 Imaging Last 72 hours Impressions Lower Extremity Ultrasound 08/30/16 0600 Signed Impressions: Service Date/Time: Tuesday, August 30, 2016 09:51 - CONCLUSION: Normal examination. K. Shekhar Harris MD Chest X-Ray 08/29/16 1619 Signed Impressions: Service Date/Time: Monday, August 29, 2016 16:35 - CONCLUSION: 1. Minimal basilar atelectasis. No consolidation or effusion. Cuco Beckett MD CT Angiography 08/29/16 0000 Signed Impressions: Service Date/Time: Monday, August 29, 2016 23:06 - CONCLUSION: Normal examination of the pulmonary arteries. Partial collapse of the right middle lobe. Small infiltrate left upper lobe could be pneumonia or atelectasis. Jose Begum MD Objective Remarks GENERAL: Alert and cooperative SKIN: Warm and dry. HEAD: Normocephalic. EYES: No scleral icterus. No injection or drainage. NECK: Supple, trachea midline. No JVD or lymphadenopathy. CARDIOVASCULAR: Regular rate and rhythm without murmurs, gallops, or rubs. RESPIRATORY: Breath sounds wheezy. No accessory muscle use. GASTROINTESTINAL: Abdomen soft, non-tender, nondistended. MUSCULOSKELETAL: No cyanosis, or edema. BACK: Nontender without obvious deformity. No CVA tenderness. Medications and IVs Current Medications Medications (Trade) Dose Ordered Sig/Lady Route Start Time Stop Time Status Last Admin (NS Flush) 2 ml UNSCH PRN IVF 08/29/16 16:30 Lorazepam 1 mg 1 mg Q6H PRN IV PUSH 08/29/16 18:45 08/31/16 09:25 Potassium Chloride 100 ml @ 50 mls/hr Q2H PRN IV 08/29/16 18:45 (KCl 20 Meq Premix Inj) 100 ml @ 50 mls/hr Q2H PRN IV 08/29/16 18:45 Potassium Bicarb/ Potassium Chloride 50 meq 50 meq UNSCH PRN PO 08/29/16 18:45 Potassium Chloride 100 ml @ 25 mls/hr UNSCH PRN IV 08/29/16 18:45 Potassium Chloride 100 ml @ 50 mls/hr Q2H PRN IV 08/29/16 18:45 (Magnesium Sulfate Inj/NS Inj) 100 ml @ 50 mls/hr UNSCH PRN IV 08/29/16 18:45 Magnesium Oxide 800 mg 800 mg UNSCH PRN PO 08/29/16 18:45 (Magnesium Sulfate Inj/NS Inj) 100 ml @ 50 mls/hr UNSCH PRN IV 08/29/16 18:45 Potassium Phosphate 2000 mg 2,000 mg Q4H PRN PO 08/29/16 18:45 (Sodium Phosphate Inj/NS 250 ml Inj) 250 ml @ 42 mls/hr UNSCH PRN IV 08/29/16 18:45 Potassium Phosphate 2000 mg 2,000 mg UNSCH PRN PO/TUBE 08/29/16 18:45 (Potassium Phosphate Inj/NS 250 ml Inj) 260 ml @ 42 mls/hr UNSCH PRN IV 08/29/16 18:45 (NS Flush) 2 ml UNSCH PRN .XX 08/29/16 18:45 08/31/16 02:29 (NS Flush) 2 ml BID .XX 08/29/16 21:00 08/31/16 08:25 (Tylenol) 650 mg Q6H PRN PO 08/29/16 18:45 ([place] 5-325 Mg) 1 tab Q4H PRN PO 08/29/16 18:45 08/31/16 09:25 (Morphine Inj) 2 mg Q2H PRN IV 08/29/16 18:45 08/30/16 19:06 (Protonix Inj) 40 mg DAILY IV 08/30/16 09:00 08/31/16 08:18 (Zofran Inj) 4 mg Q6H PRN IV 08/29/16 18:45 08/30/16 20:03 (Colace) 100 mg BID PO 08/29/16 21:00 08/31/16 08:18 Miscellaneous Information 1 Q361D XX 08/29/16 18:45 (Chlorhexidine 2% Cloth) 3 pack Taper DAILY@04 TOP 08/30/16 04:00 08/26/17 03:59 (Chlorhexidine 2% Cloth) 3 pack UNSCH PRN TOP 08/29/16 18:45 (SoluMEDROL INJ) 60 mg Q6H IV PUSH 08/29/16 20:00 08/31/16 08:19 Azithromycin 500 mg 500 mg DAILY PO 08/30/16 17:00 08/31/16 09:24 (Rocephin Inj/NS Inj) 100 ml @ 200 mls/hr Q12H IV 08/30/16 05:00 08/31/16 05:07 (D50w (Vial) Inj) 25 ml UNSCH PRN IV PUSH 08/30/16 08:00 (Glucagon Inj) 1 mg UNSCH PRN OTHER 08/30/16 08:00 (Norvasc) 2.5 mg BID PO 08/30/16 09:00 08/31/16 08:18 (Singulair) 10 mg HS PO 08/30/16 21:00 08/30/16 20:00 (Lovenox Inj) 40 mg Q24H SQ 08/30/16 09:00 08/31/16 08:19 (Pill Splitter) 1 ea UNSCH PRN OTHER 08/30/16 09:00 Assessment and Plan Problem List: (1) Asthma Status: Acute Plan: Pulmonary consulted and managing. Continue steroids, singular, and breathing treatments. PRN ativan available for anxiety (2) Severe sepsis Status: Acute Plan: Labs ordered for today. On antibiotics. (3) Hypertension Status: Acute Plan: B/P elevated. Norvasc increased. Assessment and Plan Assessment and plan discussed with Dr. Hazel Problem Qualifiers (1) Hypertension: Qualified Code: I10 - Essential hypertension Sadaf Gee Aug 31, 2016 11:07
[2016-08-31 12:34] LABS: ANION GAP 12 MEQ/L (5-15); AST (GOT) 25 U/L (15-37); BICARBONATE 21.3 MEQ/L (21.0-32.0); BLOOD UREA NITROGEN 16 MG/DL (7-18); CHLORIDE 102 MEQ/L (98-107); GLOMERULAR FILTRATION RATE 64 ML/MIN (>89); SODIUM (NA) 135 MEQ/L (136-145)
[2016-08-31 12:37] LABS: ALKALINE PHOSPHATASE 130 U/L (45-117); ALT (GPT) 40 U/L (10-53); TOTAL BILIRUBIN ADULT 0.6 MG/DL (0.2-1.0)
[2016-08-31 12:39] LABS: AUTOMATED NEUTROPHIL # 21.7 TH/MM3 (1.8-7.7); BASOPHIL # 0.1 TH/MM3 (0-0.2); BASOPHIL % 0.4 % (0.0-2.0); EOSINOPHIL % 0.1 % (0.0-4.0); HEMATOCRIT 33.7 % (35.0-46.0); HEMO FLAGS DIFF FINAL; LYMPH % 7.3 % (9.0-44.0); LYMPHOCYTE # 1.8 TH/MM3 (1.0-4.8); MEAN CELL VOLUME 84.3 FL (80.0-100.0); MEAN CORPUSCULAR HEMOGLOBIN 29.2 PG (27.0-34.0); MEAN CORPUSCULAR HGB CONC 34.7 % (32.0-36.0); MONO % 2.9 % (0.0-8.0); NEUT % 89.3 % (16.0-70.0); PLATELET COUNT 299 TH/MM3 (150-450); RED CELL DISTRIBUTION WIDTH 14.8 % (11.6-17.2); WHITE BLOOD COUNT 24.2 TH/MM3 (4.0-11.0)
[2016-08-31] MEDS ORDERED: PILL SPLITTER OTHER PRN (18:45)
--- NOTE | 2016-08-31 19:32 | HHI.PR ---
Subjective Remarks 40 YOAA female with Br asthma exac. bronchitis Feels better Had episode of SOB last night Occ cough Objective Vital Signs Vital Signs Date Time Temp Pulse Resp B/P Pulse Ox O2 Delivery O2 Flow Rate FiO2 08/31/16 16:05 99.0 109 20 142/72 95 08/31/16 12:06 99.3 110 20 133/86 95 08/31/16 09:07 95 Venturi Mask 35 08/31/16 08:06 98.2 93 21 159/91 97 08/31/16 07:15 108 08/31/16 06:15 98.2 96 18 148/88 95 08/31/16 00:09 99.1 113 18 133/85 97 08/30/16 20:58 98.0 118 18 160/91 95 08/30/16 20:21 98 08/30/16 19:37 96 Nasal Cannula 3.00 I/O 08/30/16 08/30/16 08/30/16 08/31/16 08/31/16 08/31/16 07:00 15:00 23:00 07:00 15:00 23:00 Intake Total 482 ml Output Total 3000 ml 1000 ml Balance -3000 ml -1000 ml 482 ml Intake Oral 480 ml IV Total 2 ml Output Urine Total 3000 ml 1000 ml # Voids 4 # Bowel Movements 1 Result Diagram: 08/31/16 1202 08/31/16 1202 Other Results GENERAL:WBWN AA female, NAD SKIN: Warm and dry. HEAD: Normocephalic. EYES: No scleral icterus. No injection or drainage. NECK: Supple, trachea midline. No JVD or lymphadenopathy. CARDIOVASCULAR: Regular rate and rhythm without murmurs, gallops, or rubs. RESPIRATORY: Breath sounds equal bilaterally. No accessory muscle use. Exp rhonchi GASTROINTESTINAL: Abdomen soft, non-tender, nondistended. MUSCULOSKELETAL: No cyanosis, or edema. BACK: Nontender without obvious deformity. No CVA tenderness. A/P Assessment and Plan Bronchial asthma exac Bronchitis Leucocytosis RML Atelactesis PLAN: Cont IV Solumedrol Aerosol nebs Cont Abx Supplement 02 Monitor CBC Oleg Gunter MD Aug 31, 2016 19:32
[2016-08-31] MEDS: MONTELUKAST SODIUM 10 MG TAB PO SCH (21:00)
[2016-08-31] MEDS: ACETAMIN 325 MG/BUTALBITAL 50 MG/CAFFEINE 40 MG TAB PO PRN (22:31)
[2016-09-01] VITALS (10 sets, daily range): BP systolic 123–155; BP diastolic 69–92; PULSE 98–113; RESP 16–20; TEMP 97.2–98.1; O2SAT 93–98
[2016-09-01] MEDS: LORazepam 2 MG/ML VIAL IV PUSH PRN ×3 (00:02→22:04)
[2016-09-01] MEDS: SODIUM CHLORIDE 0.9% FLUSH 10 ML FLUSH IVF PRN (00:04)
[2016-09-01] MEDS: methylPREDNISolone SOD SUCC 125 MG/2 ML VIAL IV PUSH SCH ×4 (02:25→20:38)
[2016-09-01] MEDS: CHLORHEXIDINE GLUCONATE 2 % 1 PACK (2 CLOTHS) TOP SCH (03:43)
[2016-09-01] MEDS: cefTRIAXone INJ 1,000 MG in SODIUM CHLORIDE 0.9% INJ 100 ML IV SCH ×2 (05:16→17:25)
[2016-09-01] MEDS: INSULIN ASPART SUPPLEMENTAL SCALE SQ SCH (05:18)
[2016-09-01] MEDS: RESP: ALBUTEROL 2.5 MG/IPRATROPIUM 0.5 MG NEB (SCH) INH ×5 (05:26→19:22)
[2016-09-01 06:18] LABS: HEMATOCRIT 34.1 % (35.0-46.0); MEAN CELL VOLUME 84.7 FL (80.0-100.0); MEAN CORPUSCULAR HEMOGLOBIN 29.3 PG (27.0-34.0); MEAN CORPUSCULAR HGB CONC 34.6 % (32.0-36.0); PLATELET COUNT 376 TH/MM3 (150-450); RED BLOOD COUNT 4.03 MIL/MM3 (4.00-5.30); RED CELL DISTRIBUTION WIDTH 15.2 % (11.6-17.2); REVIEW FLAG FINAL; WHITE BLOOD COUNT 19.5 TH/MM3 (4.0-11.0)
[2016-09-01] MEDS: ACETAMIN 325 MG/BUTALBITAL 50 MG/CAFFEINE 40 MG TAB PO PRN ×2 (06:29→22:04)
[2016-09-01 07:18] LABS: ANION GAP 9 MEQ/L (5-15); BICARBONATE 24.9 MEQ/L (21.0-32.0); BLOOD UREA NITROGEN 14 MG/DL (7-18); CHLORIDE 103 MEQ/L (98-107); FREE T4 0.65 NG/DL (0.76-1.46); GLOMERULAR FILTRATION RATE 82 ML/MIN (>89); MAGNESIUM 2.3 MG/DL (1.5-2.5); SODIUM (NA) 137 MEQ/L (136-145)
[2016-09-01 07:19] LABS: POTASSIUM 3.6 MEQ/L (3.5-5.1)
--- NOTE | 2016-09-01 07:44 | HHI.PR ---
Subjective Remarks Patient seen at bedside. Alert and cooperative No CP reported. Reports that headache is improved with medication and also reports right eye pain and pressure Objective Vital Signs Date Time Temp Pulse Resp B/P Pulse Ox O2 Delivery O2 Flow Rate FiO2 09/01/16 05:28 98.1 104 18 138/78 98 08/31/16 23:58 98.0 109 16 137/77 95 08/31/16 22:38 98.2 105 18 152/93 96 08/31/16 21:08 94 21 08/31/16 20:04 117 08/31/16 16:05 99.0 109 20 142/72 95 08/31/16 12:06 99.3 110 20 133/86 95 08/31/16 09:07 95 Venturi Mask 35 08/31/16 08:06 98.2 93 21 159/91 97 I/O 08/31/16 08/31/16 08/31/16 09/01/16 09/01/16 09/01/16 07:00 15:00 23:00 07:00 15:00 23:00 Intake Total 482 ml Balance 482 ml Intake Oral 480 ml IV Total 2 ml # Voids 4 # Bowel Movements 1 Result Diagram: 09/01/16 0558 09/01/16 0558 Objective Remarks GENERAL: Alert and cooperative SKIN: Warm and dry. HEAD: Normocephalic. EYES: Right eye injected. NECK: Supple, trachea midline. No JVD or lymphadenopathy. CARDIOVASCULAR: Regular rate and rhythm without murmurs, gallops, or rubs. RESPIRATORY: Breath sounds wheezy. No accessory muscle use. GASTROINTESTINAL: Abdomen soft, non-tender, nondistended. MUSCULOSKELETAL: No cyanosis, or edema. BACK: Nontender without obvious deformity. No CVA tenderness. Medications and IVs Current Medications Medications (Trade) Dose Ordered Sig/Lady Route Start Time Stop Time Status Last Admin (NS Flush) 2 ml UNSCH PRN IVF 08/29/16 16:30 09/01/16 00:04 (Ativan Inj) 1 mg Q6H PRN IV PUSH 08/29/16 18:45 09/01/16 00:02 (NS Flush) 2 ml UNSCH PRN .XX 08/29/16 18:45 08/31/16 02:29 (NS Flush) 2 ml BID .XX 08/29/16 21:00 08/31/16 21:00 (Tylenol) 650 mg Q6H PRN PO 08/29/16 18:45 ([place] 5-325 Mg) 1 tab Q4H PRN PO 08/29/16 18:45 08/31/16 09:25 (Protonix Inj) 40 mg DAILY IV 08/30/16 09:00 08/31/16 08:18 (Zofran Inj) 4 mg Q6H PRN IV 08/29/16 18:45 08/30/16 20:03 (Colace) 100 mg BID PO 08/29/16 21:00 08/31/16 21:00 Miscellaneous Information 1 Q361D XX 08/29/16 18:45 (Chlorhexidine 2% Cloth) 3 pack Taper DAILY@04 TOP 08/30/16 04:00 08/26/17 03:59 (Chlorhexidine 2% Cloth) 3 pack UNSCH PRN TOP 08/29/16 18:45 (SoluMEDROL INJ) 60 mg Q6H IV PUSH 08/29/16 20:00 09/01/16 02:25 Azithromycin 500 mg 500 mg DAILY PO 08/30/16 17:00 08/31/16 09:24 (Rocephin Inj/NS Inj) 100 ml @ 200 mls/hr Q12H IV 08/30/16 05:00 09/01/16 05:16 (D50w (Vial) Inj) 25 ml UNSCH PRN IV PUSH 08/30/16 08:00 (Glucagon Inj) 1 mg UNSCH PRN OTHER 08/30/16 08:00 (Singulair) 10 mg HS PO 08/30/16 21:00 08/31/16 21:00 (Lovenox Inj) 40 mg Q24H SQ 08/30/16 09:00 08/31/16 08:19 (Pill Splitter) 1 ea UNSCH PRN OTHER 08/30/16 09:00 (Norvasc) 5 mg BID PO 08/31/16 21:00 08/31/16 21:00 (Paxil Cr) 25 mg DAILY PO 09/01/16 09:00 (Norvasc) 2.5 mg DAILY PO 09/01/16 09:00 (Pill Splitter) 1 ea UNSCH PRN OTHER 08/31/16 18:45 (Fioricet 325-50-40) 1 tab Q4H PRN PO 08/31/16 22:00 09/01/16 06:29 (Fioricet 325-50-40) 2 tab Q4H PRN PO 08/31/16 22:00 08/31/16 22:31 Assessment and Plan Problem List: (1) Asthma Status: Acute Plan: Pulmonary consulted and managing. Continue steroids, singular, and breathing treatments. PRN ativan available for anxiety (2) Severe sepsis Status: Acute Plan: Labs ordered for today. On antibiotics. (3) Hypertension Status: Acute Plan: B/P improved at 138/78 with increase in Norvasc. (4) Headache Status: Acute Plan: Improved with Fioricet (5) Eye pain Status: Acute Plan: Right eye injected. Reported that yesterday she felt eye pain and pressure. No vision alterations. Ophthalmology consulted (6) Vitamin D deficiency Status: Acute Plan: Replacement added. (7) Anxiety Status: Acute Plan: Paxil initiated and ativan as needed. (8) Elevated glucose Status: Acute Plan: BS AC and HS ordered. SS ordered. [facility] pending Assessment and Plan Assessment and plan discussed with Dr. Hazel Discussed Condition With Nursing Discharge Planning Home with [facility] Problem Qualifiers (1) Hypertension: Qualified Code: I10 - Essential hypertension Sadaf Gee Sep 01, 2016 07:44
[2016-09-01] MEDS ORDERED: DEXTROSE 50% IN WATER 50 ML VIAL(D50) IV PUSH PRN (07:45)
[2016-09-01] MEDS ORDERED: GLUCAGON 1 MG/ML VIAL OTHER PRN (07:45)
[2016-09-01] MEDS: PANTOPRAZOLE SODIUM 40 MG VIAL IV SCH (09:36)
[2016-09-01] MEDS: AZITHROMYCIN 250 MG TAB PO SCH (09:37)
[2016-09-01] MEDS: amLODIPine BESYLATE 5 MG TAB PO SCH ×3 (09:37→20:38)
[2016-09-01] MEDS: DOCUSATE SODIUM 100 MG CAP PO SCH ×2 (09:37→20:38)
[2016-09-01] MEDS: PARoxetine 25 MG CONTROLLED RELEASE TAB PO SCH (09:37)
[2016-09-01] MEDS: ENOXAPARIN SODIUM 40 MG/0.4 ML SYRINGE SQ SCH (09:37)
[2016-09-01] MEDS: CHOLECALCIFEROL (VIT D3) 5000 UNIT CAP PO SCH (09:43)
[2016-09-01] MEDS: SODIUM CHLORIDE 0.9% FLUSH 10 ML FLUSH SCH ×2 (09:49→20:38)
[2016-09-01] MEDS: INSULIN NovoLIN REGULAR SUPPLEMENTAL SCALE SQ SCH ×3 (11:59→20:40)
[2016-09-01 16:47] LABS: HEMOGLOBIN A1b 2.2 %; HEMOGLOBIN LA1C 2.6 %; HEMOGLOBIN P3 4.3 %
--- NOTE | 2016-09-01 19:31 | HHI.PR ---
Subjective Remarks 40 YOAA female with Br asthma exac. bronchitis Feels better has redness right eye Occ cough Objective Vital Signs Vital Signs Date Time Temp Pulse Resp B/P Pulse Ox O2 Delivery O2 Flow Rate FiO2 09/01/16 16:00 97.3 112 20 152/91 95 09/01/16 15:24 97 21 09/01/16 12:00 97.4 112 20 152/83 93 09/01/16 09:46 95 Venturi Mask 21 09/01/16 08:20 103 09/01/16 08:00 97.2 104 18 123/69 95 09/01/16 05:28 98.1 104 18 138/78 98 08/31/16 23:58 98.0 109 16 137/77 95 08/31/16 22:38 98.2 105 18 152/93 96 08/31/16 21:08 94 21 08/31/16 20:04 117 I/O 08/31/16 08/31/16 08/31/16 09/01/16 09/01/16 09/01/16 07:00 15:00 23:00 07:00 15:00 23:00 Intake Total 482 ml 600 ml Balance 482 ml 600 ml Intake Oral 480 ml 600 ml IV Total 2 ml # Voids 4 2 # Bowel Movements 1 1 Result Diagram: 09/01/16 0558 09/01/16 0558 A/P Assessment and Plan Bronchial asthma exac Bronchitis Leucocytosis RML Atelactesis PLAN: Cont IV Solumedrol Aerosol nebs Cont Abx Supplement 02 Monitor CBC Oleg Gunter MD Sep 01, 2016 19:31
[2016-09-01] MEDS: ONDANSETRON HCL 4 MG/2 ML VIAL IV PRN (20:05)
[2016-09-01] MEDS: MONTELUKAST SODIUM 10 MG TAB PO SCH (20:38)
--- NOTE | 2016-09-01 22:10 | PD.CONS ---
History of Present Illness Service Ophthalmology Consult Requested By Reason for Consult right eye redness and pressure Primary Care Physician Frankie Hazel DO Diagnoses: History of Present Illness 40 yo F with PMH of asthma, hypertension, obesity who presents to [facility] with shortness of breath. Diagnosed with acute asthma attack and bronchitis. 3 days ago noticed right eye redness and pressure behind her eye. No change in vision. No sharp pain. No significant ocular history. Past Family Social History Allergies: Coded Allergies: UNOBTAINABLE (Unverified , 08/29/16) Physical Exam Vital Signs Vital Signs Date Time Temp Pulse Resp B/P Pulse Ox O2 Delivery O2 Flow Rate FiO2 09/01/16 16:00 97.3 112 20 152/91 95 09/01/16 15:24 97 21 09/01/16 12:00 97.4 112 20 152/83 93 09/01/16 09:46 95 Venturi Mask 21 09/01/16 08:20 103 09/01/16 08:00 97.2 104 18 123/69 95 09/01/16 05:28 98.1 104 18 138/78 98 08/31/16 23:58 98.0 109 16 137/77 95 08/31/16 22:38 98.2 105 18 152/93 96 Physical Exam Va sc at near OD 20/50, OS 20/30 EOM full OU, no diplopia CVF full OU Pupils 4-2 no APD OU IOP 17, 21 mm Hg Anterior exam OD - normal eyelid, subconj heme, K clear, AC deep, pupil round, lens clear OS - normal eyelid, C/S W&Q, K clear, AC deep, pupil round, lens clear Laboratory Laboratory Tests Test 09/01/16 05:58 White Blood Count 19.5 Red Blood Count 4.03 Hemoglobin 11.8 Hematocrit 34.1 Mean Corpuscular Volume 84.7 Mean Corpuscular Hemoglobin 29.3 Mean Corpuscular Hemoglobin 34.6 Concent Red Cell Distribution Width 15.2 Platelet Count 376 Mean Platelet Volume 7.2 Sodium Level 137 Potassium Level 3.6 Chloride Level 103 Carbon Dioxide Level 24.9 Anion Gap 9 Blood Urea Nitrogen 14 Creatinine 0.91 Estimat Glomerular Filtration 82 Rate Random Glucose 180 Hemoglobin A1c 6.3 Calcium Level 8.4 Phosphorus Level 2.6 Magnesium Level 2.3 25-Hydroxy Vitamin D Total 14.2 Free Thyroxine 0.65 Thyroid Stimulating Hormone 0.244 3rd Gen Date/Time Procedure Status Source Growth 08/31/16 18:30 Cancelled Sputum Expectorated Sputum 08/30/16 06:30 Influenza Types A,B Antigen (RICHELLE) - Final Complete Nasal Aspirate NEGATIVE FOR FLU A AND B ANTIGEN.... 08/29/16 16:45 Aerobic Blood Culture - Preliminary Resulted Blood Peripheral NO GROWTH IN 3 DAYS 08/29/16 16:45 Anaerobic Blood Culture - Preliminary Resulted Blood Peripheral NO GROWTH IN 3 DAYS Result Diagram: 09/01/16 0558 09/01/16 0558 Assessment and Plan Problem List: (1) Subconjunctival hemorrhage of right eye Status: Acute Plan: Usually this is associated with no pain or vision change and resolves on its own within 1-2 weeks. Will start Prednisolone acetate 1% QID OD to help with the irritation she is feeling. Follow up as outpatient. Bethany Barnes MD Sep 01, 2016 22:10
[2016-09-02] VITALS (12 sets, daily range): BP systolic 139–160; BP diastolic 77–98; PULSE 96–108; RESP 16–20; TEMP 97.4–98.3; O2SAT 93–99
[2016-09-02] MEDS: RESP: ALBUTEROL 2.5 MG/IPRATROPIUM 0.5 MG NEB (SCH) INH ×6 (00:26→20:00)
[2016-09-02] MEDS: methylPREDNISolone SOD SUCC 125 MG/2 ML VIAL IV PUSH SCH ×3 (02:37→12:27)
[2016-09-02] MEDS: CHLORHEXIDINE GLUCONATE 2 % 1 PACK (2 CLOTHS) TOP SCH (03:57)
[2016-09-02] MEDS: cefTRIAXone INJ 1,000 MG in SODIUM CHLORIDE 0.9% INJ 100 ML IV SCH ×2 (05:17→16:05)
[2016-09-02] MEDS: ACETAMIN 325 MG/BUTALBITAL 50 MG/CAFFEINE 40 MG TAB PO PRN ×3 (05:22→22:03)
[2016-09-02] MEDS: INSULIN NovoLIN REGULAR SUPPLEMENTAL SCALE SQ SCH ×4 (06:02→22:01)
[2016-09-02 07:14] LABS: HEMATOCRIT 36.3 % (35.0-46.0); MEAN CELL VOLUME 85.1 FL (80.0-100.0); MEAN CORPUSCULAR HEMOGLOBIN 28.7 PG (27.0-34.0); MEAN CORPUSCULAR HGB CONC 33.7 % (32.0-36.0); PLATELET COUNT 384 TH/MM3 (150-450); RED BLOOD COUNT 4.26 MIL/MM3 (4.00-5.30); RED CELL DISTRIBUTION WIDTH 14.6 % (11.6-17.2); REVIEW FLAG FINAL; WHITE BLOOD COUNT 19.3 TH/MM3 (4.0-11.0)
[2016-09-02 07:42] LABS: BICARBONATE 25.4 MEQ/L (21.0-32.0)
[2016-09-02 07:43] LABS: POTASSIUM 3.4 MEQ/L (3.5-5.1)
--- NOTE | 2016-09-02 08:35 | HHI.PR ---
Subjective Remarks Patient seen at bedside. Alert and cooperative Denies and CP or SOB on RA. Reports that she gets SOB with exertion. Objective Vital Signs Date Time Temp Pulse Resp B/P Pulse Ox O2 Delivery O2 Flow Rate FiO2 09/02/16 04:15 97.9 103 16 139/78 99 09/02/16 04:08 93 21 09/02/16 00:29 96 21 09/01/16 23:45 98.1 98 16 148/92 93 09/01/16 20:27 97.9 110 18 155/89 96 09/01/16 20:00 113 09/01/16 16:00 97.3 112 20 152/91 95 09/01/16 15:24 97 21 09/01/16 12:00 97.4 112 20 152/83 93 09/01/16 09:46 95 Venturi Mask 21 I/O 09/01/16 09/01/16 09/01/16 09/02/16 09/02/16 09/02/16 07:00 15:00 23:00 07:00 15:00 23:00 Intake Total 600 ml 1200 ml 240 ml Balance 600 ml 1200 ml 240 ml Intake Oral 600 ml 1200 ml 240 ml # Voids 2 6 3 # Bowel Movements 1 1 0 Result Diagram: 09/02/1662209/02/1623 Objective Remarks GENERAL: Alert and cooperative SKIN: Warm and dry. HEAD: Normocephalic. EYES: Right eye injected. NECK: Supple, trachea midline. No JVD or lymphadenopathy. CARDIOVASCULAR: Regular rate and rhythm without murmurs, gallops, or rubs. RESPIRATORY: Breath sounds wheezy. No accessory muscle use. GASTROINTESTINAL: Abdomen soft, non-tender, nondistended. MUSCULOSKELETAL: No cyanosis, or edema. BACK: Nontender without obvious deformity. No CVA tenderness. Medications and IVs Current Medications Medications (Trade) Dose Ordered Sig/Lady Route Start Time Stop Time Status Last Admin (NS Flush) 2 ml UNSCH PRN IVF 08/29/16 16:30 09/01/16 00:04 (Ativan Inj) 1 mg Q6H PRN IV PUSH 08/29/16 18:45 09/01/16 22:04 (NS Flush) 2 ml UNSCH PRN .XX 08/29/16 18:45 08/31/16 02:29 (NS Flush) 2 ml BID .XX 08/29/16 21:00 09/01/16 20:38 (Tylenol) 650 mg Q6H PRN PO 08/29/16 18:45 ([place] 5-325 Mg) 1 tab Q4H PRN PO 08/29/16 18:45 08/31/16 09:25 (Protonix Inj) 40 mg DAILY IV 08/30/16 09:00 09/01/16 09:36 (Zofran Inj) 4 mg Q6H PRN IV 08/29/16 18:45 09/01/16 20:05 (Colace) 100 mg BID PO 08/29/16 21:00 09/01/16 20:38 Miscellaneous Information 1 Q361D XX 08/29/16 18:45 (Chlorhexidine 2% Cloth) 3 pack Taper DAILY@04 TOP 08/30/16 04:00 08/26/17 03:59 (Chlorhexidine 2% Cloth) 3 pack UNSCH PRN TOP 08/29/16 18:45 (SoluMEDROL INJ) 60 mg Q6H IV PUSH 08/29/16 20:00 09/02/16 02:37 Azithromycin 500 mg 500 mg DAILY PO 08/30/16 17:00 09/01/16 09:37 (Rocephin Inj/NS Inj) 100 ml @ 200 mls/hr Q12H IV 08/30/16 05:00 09/02/16 05:17 (Singulair) 10 mg HS PO 08/30/16 21:00 09/01/16 20:38 (Lovenox Inj) 40 mg Q24H SQ 08/30/16 09:00 09/01/16 09:37 (Pill Splitter) 1 ea UNSCH PRN OTHER 08/30/16 09:00 (Norvasc) 5 mg BID PO 08/31/16 21:00 09/01/16 20:38 (Paxil Cr) 25 mg DAILY PO 09/01/16 09:00 09/01/16 09:37 (Norvasc) 2.5 mg DAILY PO 09/01/16 09:00 09/01/16 09:37 (Pill Splitter) 1 ea UNSCH PRN OTHER 08/31/16 18:45 (Fioricet 325-50-40) 1 tab Q4H PRN PO 08/31/16 22:00 09/01/16 06:29 (Fioricet 325-50-40) 2 tab Q4H PRN PO 08/31/16 22:00 09/02/16 05:22 (D50w (Vial) Inj) 25 ml UNSCH PRN IV PUSH 09/01/16 07:45 (Glucagon Inj) 1 mg UNSCH PRN OTHER 09/01/16 07:45 (Vitamin D3) 5,000 units DAILY PO 09/01/16 09:00 09/01/16 09:43 (Pred Forte 1% Opth Susp) 1 drop QID RIGHT EYE 09/02/16 09:00 Assessment and Plan Problem List: (1) Asthma Status: Acute Plan: Pulmonary consulted and managing. Continue steroids, singular, and breathing treatments. PRN ativan available for anxiety IV steroids decreased to Q 12 hours. (2) Severe sepsis Status: Acute Plan: Labs ordered for today. On antibiotics. (3) Hypertension Status: Acute Plan: B/P improved at 139/78 with the increase in Norvasc. (4) Headache Status: Acute Plan: No headache reported this am. Has Fioricet as needed (5) Eye pain Status: Acute Plan: Right eye injected. Reported that yesterday she felt eye pain and pressure. No vision alterations. Ophthalmology consulted gtts ordered. (6) Vitamin D deficiency Status: Acute Plan: Replacement added. (7) Anxiety Status: Acute Plan: On paxil. Will controlled. (8) Elevated glucose Status: Acute Plan: BS AC and HS ordered. 180-202. Most likely steroid induced. SS ordered. HAIC 6.3 (9) Hypokalemia Status: Acute Plan: Replacement added. Recheck in AM Assessment and Plan Assessment and plan discussed with Dr. Hazel Discussed Condition With Nurse Discharge Planning Discharge home Problem Qualifiers (1) Hypertension: Qualified Code: I10 - Essential hypertension Sadaf Gee Sep 02, 2016 08:35
[2016-09-02] MEDS: CHOLECALCIFEROL (VIT D3) 5000 UNIT CAP PO SCH (08:47)
[2016-09-02] MEDS: PARoxetine 25 MG CONTROLLED RELEASE TAB PO SCH (08:47)
[2016-09-02] MEDS: amLODIPine BESYLATE 5 MG TAB PO SCH ×3 (08:47→22:03)
[2016-09-02] MEDS: DOCUSATE SODIUM 100 MG CAP PO SCH ×2 (08:47→22:02)
[2016-09-02] MEDS: prednisoLONE ACETATE 1% OPHT SUSP 5 ML BTL RIGHT EYE SCH ×3 (08:48→22:00)
[2016-09-02] MEDS: PANTOPRAZOLE SODIUM 40 MG VIAL IV SCH (08:48)
[2016-09-02] MEDS: POTASSIUM CHLORIDE 20 MEQ CONTROLLED RELEASE TAB PO SCH (08:48)
[2016-09-02] MEDS: ENOXAPARIN SODIUM 40 MG/0.4 ML SYRINGE SQ SCH (08:48)
[2016-09-02] MEDS: AZITHROMYCIN 250 MG TAB PO SCH (08:48)
[2016-09-02] MEDS: SODIUM CHLORIDE 0.9% FLUSH 10 ML FLUSH SCH ×2 (09:00→22:06)
[2016-09-02] MEDS: LORazepam 2 MG/ML VIAL IV PUSH PRN ×2 (16:05→22:06)
--- NOTE | 2016-09-02 17:33 | HHI.PR ---
Subjective Remarks Pt does not notice much improvement in right eye. Still with mild throbbing pain and redness. Objective Vital Signs Date Time Temp Pulse Resp B/P Pulse Ox O2 Delivery O2 Flow Rate FiO2 09/02/16 16:00 98.1 104 20 159/85 95 09/02/16 12:00 97.4 108 20 142/96 95 09/02/16 09:00 98 09/02/16 08:20 96 09/02/16 08:00 98.3 105 20 142/77 95 09/02/16 04:15 97.9 103 16 139/78 99 09/02/16 04:08 93 21 09/02/16 00:29 96 21 09/01/16 23:45 98.1 98 16 148/92 93 09/01/16 20:27 97.9 110 18 155/89 96 09/01/16 20:00 113 I/O 09/01/16 09/01/16 09/01/16 09/02/16 09/02/16 09/02/16 07:00 15:00 23:00 07:00 15:00 23:00 Intake Total 600 ml 1200 ml 240 ml Balance 600 ml 1200 ml 240 ml Intake Oral 600 ml 1200 ml 240 ml # Voids 2 6 3 2 4 # Bowel Movements 1 1 0 Result Diagram: 09/02/16 0623 09/02/16 0623 Objective Remarks Va sc at near OD 20/50, OS 20/30 EOM full OU, no diplopia CVF full OU Pupils 4-2 no APD OU IOP 18, 20 mm Hg Anterior exam OD - normal eyelid, subconj heme, K clear, AC deep, pupil round, lens clear OS - normal eyelid, C/S W&Q, K clear, AC deep, pupil round, lens clear Assessment and Plan Problem List: (1) Subconjunctival hemorrhage of right eye Status: Acute Plan: Usually this is associated with no pain or vision change and resolves on its own within 1-2 weeks. Increase Prednisolone acetate 1% to q3h OD to help with the irritation she is feeling. Follow up as outpatient. Bethany Barnes MD Sep 02, 2016 17:33
--- NOTE | 2016-09-02 20:09 | HHI.PR ---
Subjective Remarks 40 YOAA female with Br asthma exac. bronchitis Feels better has redness right eye Occ cough Wheezing better Objective Vital Signs Vital Signs Date Time Temp Pulse Resp B/P Pulse Ox O2 Delivery O2 Flow Rate FiO2 09/02/16 16:00 98.1 104 20 159/85 95 09/02/16 12:00 97.4 108 20 142/96 95 09/02/16 09:00 98 09/02/16 08:20 96 09/02/16 08:00 98.3 105 20 142/77 95 09/02/16 04:15 97.9 103 16 139/78 99 09/02/16 04:08 93 21 09/02/16 00:29 96 21 09/01/16 23:45 98.1 98 16 148/92 93 09/01/16 20:27 97.9 110 18 155/89 96 I/O 09/01/16 09/01/16 09/01/16 09/02/16 09/02/16 09/02/16 07:00 15:00 23:00 07:00 15:00 23:00 Intake Total 600 ml 1200 ml 240 ml Balance 600 ml 1200 ml 240 ml Intake Oral 600 ml 1200 ml 240 ml # Voids 2 6 3 2 4 # Bowel Movements 1 1 0 Result Diagram: 09/02/16 0623 09/02/16 0623 A/P Assessment and Plan Bronchial asthma exac Bronchitis Leucocytosis RML Atelactesis PLAN: Decrease IV Solumedrol. 40 mg q 8 hrs Aerosol nebs Cont Abx Supplement 02 Monitor CBC Oleg Gunter MD Sep 02, 2016 20:08
[2016-09-02] MEDS: MONTELUKAST SODIUM 10 MG TAB PO SCH (22:02)
[2016-09-02] MEDS: methylPREDNISolone SOD SUCC 40 MG/1 ML VIAL IV SCH (22:06)
[2016-09-03] VITALS (9 sets, daily range): BP systolic 137–153; BP diastolic 84–98; PULSE 79–95; RESP 16–20; TEMP 97.9–98.3; O2SAT 93–95
[2016-09-03] MEDS: prednisoLONE ACETATE 1% OPHT SUSP 5 ML BTL RIGHT EYE SCH ×9 (00:06→23:00)
[2016-09-03] MEDS: CHLORHEXIDINE GLUCONATE 2 % 1 PACK (2 CLOTHS) TOP SCH (02:43)
[2016-09-03] MEDS: cefTRIAXone INJ 1,000 MG in SODIUM CHLORIDE 0.9% INJ 100 ML IV SCH ×2 (05:13→17:21)
[2016-09-03] MEDS: ACETAMIN 325 MG/BUTALBITAL 50 MG/CAFFEINE 40 MG TAB PO PRN ×4 (05:29→21:45)
[2016-09-03] MEDS: INSULIN NovoLIN REGULAR SUPPLEMENTAL SCALE SQ SCH ×4 (06:05→21:00)
[2016-09-03 07:23] LABS: HEMATOCRIT 35.9 % (35.0-46.0); MEAN CELL VOLUME 85.2 FL (80.0-100.0); MEAN CORPUSCULAR HEMOGLOBIN 28.6 PG (27.0-34.0); MEAN CORPUSCULAR HGB CONC 33.6 % (32.0-36.0); PLATELET COUNT 376 TH/MM3 (150-450); RED BLOOD COUNT 4.21 MIL/MM3 (4.00-5.30); RED CELL DISTRIBUTION WIDTH 14.4 % (11.6-17.2); REVIEW FLAG FINAL; WHITE BLOOD COUNT 18.6 TH/MM3 (4.0-11.0)
[2016-09-03 07:50] LABS: BICARBONATE 26.7 MEQ/L (21.0-32.0); POTASSIUM 3.5 MEQ/L (3.5-5.1)
--- NOTE | 2016-09-03 08:46 | HHI.PR ---
Subjective Remarks Patient seen at bedside. Alert and cooperative Denies and CP or SOB on RA. Objective Vital Signs Date Time Temp Pulse Resp B/P Pulse Ox O2 Delivery O2 Flow Rate FiO2 09/03/16 05:07 98.1 95 18 139/91 94 09/02/16 23:40 97.9 104 18 141/81 95 09/02/16 21:23 97.8 102 18 160/98 97 09/02/16 20:38 94 Nasal Cannula 21 09/02/16 20:00 100 09/02/16 16:00 98.1 104 20 159/85 95 09/02/16 12:00 97.4 108 20 142/96 95 09/02/16 09:00 98 I/O 09/02/16 09/02/16 09/02/16 09/03/16 09/03/16 09/03/16 07:00 15:00 23:00 07:00 15:00 23:00 Intake Total 240 ml 960 ml 0 ml Balance 240 ml 960 ml 0 ml Intake Oral 240 ml 960 ml 0 ml # Voids 3 2 7 3 # Bowel Movements 0 0 0 Result Diagram: 09/03/16 0645 09/03/16 0645 Objective Remarks GENERAL: Alert and cooperative SKIN: Warm and dry. HEAD: Normocephalic. EYES: Right eye injected. NECK: Supple, trachea midline. No JVD or lymphadenopathy. CARDIOVASCULAR: Regular rate and rhythm without murmurs, gallops, or rubs. RESPIRATORY: Breath sounds wheezy. No accessory muscle use. GASTROINTESTINAL: Abdomen soft, non-tender, nondistended. MUSCULOSKELETAL: No cyanosis, or edema. BACK: Nontender without obvious deformity. No CVA tenderness. Medications and IVs Current Medications Medications (Trade) Dose Ordered Sig/Lady Route Start Time Stop Time Status Last Admin (NS Flush) 2 ml UNSCH PRN IVF 08/29/16 16:30 09/01/16 00:04 (Ativan Inj) 1 mg Q6H PRN IV PUSH 08/29/16 18:45 09/02/16 22:06 (NS Flush) 2 ml UNSCH PRN .XX 08/29/16 18:45 08/31/16 02:29 (NS Flush) 2 ml BID .XX 08/29/16 21:00 09/02/16 22:06 (Tylenol) 650 mg Q6H PRN PO 08/29/16 18:45 ([place] 5-325 Mg) 1 tab Q4H PRN PO 08/29/16 18:45 08/31/16 09:25 (Protonix Inj) 40 mg DAILY IV 08/30/16 09:00 09/02/16 08:48 (Zofran Inj) 4 mg Q6H PRN IV 08/29/16 18:45 09/01/16 20:05 (Colace) 100 mg BID PO 08/29/16 21:00 09/02/16 22:02 Miscellaneous Information 1 Q361D XX 08/29/16 18:45 (Chlorhexidine 2% Cloth) 3 pack Taper DAILY@04 TOP 08/30/16 04:00 08/26/17 03:59 (Chlorhexidine 2% Cloth) 3 pack UNSCH PRN TOP 08/29/16 18:45 Azithromycin 500 mg 500 mg DAILY PO 08/30/16 17:00 09/02/16 08:48 (Rocephin Inj/NS Inj) 100 ml @ 200 mls/hr Q12H IV 08/30/16 05:00 09/03/16 05:13 (Singulair) 10 mg HS PO 08/30/16 21:00 09/02/16 22:02 (Lovenox Inj) 40 mg Q24H SQ 08/30/16 09:00 09/02/16 08:48 (Pill Splitter) 1 ea UNSCH PRN OTHER 08/30/16 09:00 (Norvasc) 5 mg BID PO 08/31/16 21:00 09/02/16 22:03 (Paxil Cr) 25 mg DAILY PO 09/01/16 09:00 09/02/16 08:47 (Norvasc) 2.5 mg DAILY PO 09/01/16 09:00 09/02/16 08:47 (Pill Splitter) 1 ea UNSCH PRN OTHER 08/31/16 18:45 (Fioricet 325-50-40) 1 tab Q4H PRN PO 08/31/16 22:00 09/03/16 05:29 (Fioricet 325-50-40) 2 tab Q4H PRN PO 08/31/16 22:00 09/02/16 22:03 (D50w (Vial) Inj) 25 ml UNSCH PRN IV PUSH 09/01/16 07:45 (Glucagon Inj) 1 mg UNSCH PRN OTHER 09/01/16 07:45 (Vitamin D3) 5,000 units DAILY PO 09/01/16 09:00 09/02/16 08:47 (KCl) 20 meq DAILY PO 09/02/16 09:00 09/02/16 08:48 (Pred Forte 1% Opth Susp) 1 drop Q3HR RIGHT EYE 09/02/16 20:00 09/03/16 05:15 (SoluMEDROL INJ) 40 mg Q8H IV 09/03/16 04:00 09/02/16 22:06 Assessment and Plan Problem List: (1) Asthma Status: Acute Plan: Pulmonary consulted and managing. Continue steroids, singular, and breathing treatments. PRN ativan available for anxiety IV steroids decreased to Q 8 hours. (2) Severe sepsis Status: Acute Plan: On antibiotics has remained afebrile. WBC 18.6 which has been consistent most likely associated with steroid use. (3) Hypertension Status: Acute Plan: B/P 139/91 with HR in the 90's will discontinue Norvasc and change to diltiazem to help control heart rate also. (4) Headache Status: Acute Plan: No headache reported this am. Has Fioricet as needed (5) Eye pain Status: Acute Plan: Right eye injected. Reported that yesterday she felt eye pain and pressure. No vision alterations. Ophthalmology consulted and managing gtts ordered. (6) Vitamin D deficiency Status: Acute Plan: Replacement added. (7) Anxiety Status: Acute Plan: On paxil. Will controlled. (8) Elevated glucose Status: Acute Plan: BS AC and HS ordered. Labile with steroid use. Has SS. HAIC 6.3 (9) Hypokalemia Status: Acute Plan: Replacement added. Recheck today at 3.5 Assessment and Plan Assessment and plan discussed with Dr. Hazel Discussed Condition With Nursing Problem Qualifiers (1) Hypertension: Qualified Code: I10 - Essential hypertension Sadaf Gee Sep 03, 2016 08:46
[2016-09-03] MEDS: AZITHROMYCIN 250 MG TAB PO SCH (09:15)
[2016-09-03] MEDS: CHOLECALCIFEROL (VIT D3) 5000 UNIT CAP PO SCH (09:15)
[2016-09-03] MEDS: DOCUSATE SODIUM 100 MG CAP PO SCH ×2 (09:15→21:45)
[2016-09-03] MEDS: ENOXAPARIN SODIUM 40 MG/0.4 ML SYRINGE SQ SCH (09:15)
[2016-09-03] MEDS: PANTOPRAZOLE SODIUM 40 MG VIAL IV SCH (09:15)
[2016-09-03] MEDS: DILTIAZEM-CD 120 MG CAP ER PO SCH (09:15)
[2016-09-03] MEDS: POTASSIUM CHLORIDE 20 MEQ CONTROLLED RELEASE TAB PO SCH (09:15)
[2016-09-03] MEDS: PARoxetine 25 MG CONTROLLED RELEASE TAB PO SCH (09:15)
[2016-09-03] MEDS: SODIUM CHLORIDE 0.9% FLUSH 10 ML FLUSH SCH ×2 (10:10→21:46)
[2016-09-03] MEDS: methylPREDNISolone SOD SUCC 40 MG/1 ML VIAL IV SCH ×2 (12:14→21:46)
[2016-09-03] MEDS: ONDANSETRON HCL 4 MG/2 ML VIAL IV PRN (12:14)
--- NOTE | 2016-09-03 18:58 | HHI.PR ---
Subjective Remarks 40 YOAA female with Br asthma exac. bronchitis Feels better has redness right eye Occ cough Wheezing better Ambulates Objective Vital Signs Vital Signs Date Time Temp Pulse Resp B/P Pulse Ox O2 Delivery O2 Flow Rate FiO2 09/03/16 16:00 97.9 93 20 153/98 95 09/03/16 12:00 98.0 88 18 137/87 95 09/03/16 09:25 79 09/03/16 09:22 93 09/03/16 08:00 98.3 86 18 140/89 93 09/03/16 05:07 98.1 95 18 139/91 94 09/02/16 23:40 97.9 104 18 141/81 95 09/02/16 21:23 97.8 102 18 160/98 97 09/02/16 20:38 94 Nasal Cannula 21 09/02/16 20:00 100 I/O 09/02/16 09/02/16 09/02/16 09/03/16 09/03/16 09/03/16 07:00 15:00 23:00 07:00 15:00 23:00 Intake Total 240 ml 960 ml 0 ml 372 ml Balance 240 ml 960 ml 0 ml 372 ml Intake Oral 240 ml 960 ml 0 ml 360 ml IV Total 12 ml # Voids 3 2 7 3 2 # Bowel Movements 0 0 0 1 Result Diagram: 09/03/16 0645 09/03/16 0645 A/P Assessment and Plan Bronchial asthma exac Bronchitis Leucocytosis RML Atelactesis PLAN: Decrease IV Solumedrol. 40 mg q 8 hrs Aerosol nebs Cont Abx Supplement 02 Stable pulm, available prn over weekend. Oleg Gunter MD Sep 03, 2016 18:58
[2016-09-03] MEDS: MONTELUKAST SODIUM 10 MG TAB PO SCH (21:45)
[2016-09-03] MEDS: LORazepam 2 MG/ML VIAL IV PUSH PRN (21:47)
[2016-09-04] VITALS (7 sets, daily range): BP systolic 128–145; BP diastolic 74–90; PULSE 63–104; RESP 16–18; TEMP 97.3–98.3; O2SAT 93–97
[2016-09-04] MEDS: prednisoLONE ACETATE 1% OPHT SUSP 5 ML BTL RIGHT EYE SCH ×8 (02:37→22:19)
[2016-09-04] MEDS: CHLORHEXIDINE GLUCONATE 2 % 1 PACK (2 CLOTHS) TOP SCH (04:00)
[2016-09-04] MEDS: cefTRIAXone INJ 1,000 MG in SODIUM CHLORIDE 0.9% INJ 100 ML IV SCH ×2 (05:05→17:28)
[2016-09-04] MEDS: INSULIN NovoLIN REGULAR SUPPLEMENTAL SCALE SQ SCH ×4 (05:07→22:05)
[2016-09-04] MEDS: methylPREDNISolone SOD SUCC 40 MG/1 ML VIAL IV SCH ×2 (05:07→12:37)
[2016-09-04] MEDS: ACETAMIN 325 MG/BUTALBITAL 50 MG/CAFFEINE 40 MG TAB PO PRN ×4 (07:50→22:02)
[2016-09-04] MEDS: SODIUM CHLORIDE 0.9% FLUSH 10 ML FLUSH SCH ×2 (09:00→22:00)
[2016-09-04] MEDS: ENOXAPARIN SODIUM 40 MG/0.4 ML SYRINGE SQ SCH (10:13)
[2016-09-04] MEDS: POTASSIUM CHLORIDE 20 MEQ CONTROLLED RELEASE TAB PO SCH (10:14)
[2016-09-04] MEDS: PANTOPRAZOLE SODIUM 40 MG VIAL IV SCH (10:14)
[2016-09-04] MEDS: PARoxetine 25 MG CONTROLLED RELEASE TAB PO SCH (10:14)
[2016-09-04] MEDS: CHOLECALCIFEROL (VIT D3) 5000 UNIT CAP PO SCH (10:14)
[2016-09-04] MEDS: DOCUSATE SODIUM 100 MG CAP PO SCH ×2 (10:14→21:59)
[2016-09-04] MEDS: DILTIAZEM-CD 120 MG CAP ER PO SCH (10:14)
[2016-09-04] MEDS: AZITHROMYCIN 250 MG TAB PO SCH (10:14)
[2016-09-04] MEDS: diphenhydrAMINE HCL 25 MG CAP PO PRN ×2 (14:35→21:59)
--- NOTE | 2016-09-04 17:09 | HHI.PR ---
Subjective Remarks breathing better but still very sob upon exertion had rash develop to IV arm after I rounded will dc iv and iv med solumedrol dcd Objective Vital Signs Date Time Temp Pulse Resp B/P Pulse Ox O2 Delivery O2 Flow Rate FiO2 09/04/16 12:00 97.6 104 18 145/90 94 09/04/16 09:00 85 09/04/16 08:00 97.3 77 18 136/90 96 09/04/16 04:25 97.4 87 16 139/81 94 09/03/16 23:35 98.0 82 16 141/92 94 09/03/16 21:03 98.0 89 16 147/84 95 09/03/16 20:00 80 I/O 09/03/16 09/03/16 09/03/16 09/04/16 09/04/16 09/04/16 07:00 15:00 23:00 07:00 15:00 23:00 Intake Total 0 ml 372 ml 360 ml 0 ml 720 ml Balance 0 ml 372 ml 360 ml 0 ml 720 ml Intake Oral 0 ml 360 ml 360 ml 0 ml 720 ml IV Total 12 ml # Voids 3 2 4 3 4 # Bowel Movements 0 1 0 0 0 Result Diagram: 09/03/16 0645 09/03/16 0645 Other Results GENERAL: SKIN: Warm and dry. HEAD: Atraumatic. Normocephalic. EYES: Pupils equal and round. No scleral icterus. No injection or drainage. ENT: No nasal bleeding or discharge. Mucous membranes pink and moist. NECK: Trachea midline. No JVD. CARDIOVASCULAR: Regular rate and rhythm. RESPIRATORY: No accessory muscle use. Clear to auscultation but diminished throughout. Breath sounds equal bilaterally. GASTROINTESTINAL: Abdomen soft, non-tender, nondistended. Hepatic and splenic margins not palpable. MUSCULOSKELETAL: Extremities without clubbing, cyanosis, or edema. No obvious deformities. NEUROLOGICAL: Awake and alert. No obvious cranial nerve deficits. Motor grossly within normal limits. Five out of 5 muscle strength in the arms and legs. Normal speech. PSYCHIATRIC: Appropriate mood and affect; insight and judgment normal. Assessment and Plan Problem List: (1) Status asthmaticus Status: Resolved (2) Severe sepsis Status: Acute Plan: admission with antibiotic therapy Assessment and Plan will dc iv solumedrol replace with po prednisone dc iv site due to rash developing Problem Qualifiers (1) Status asthmaticus: Qualified Code: J45.902 - Asthma with status asthmaticus, unspecified asthma severity Frankie Hazel DO Sep 04, 2016 17:09
[2016-09-04] MEDS: predniSONE 10 MG TAB PO SCH ×2 (17:28→21:59)
[2016-09-04] MEDS: MONTELUKAST SODIUM 10 MG TAB PO SCH (21:59)
[2016-09-04] MEDS: LORazepam 2 MG/ML VIAL IV PUSH PRN (22:19)
[2016-09-05] VITALS (7 sets, daily range): BP systolic 123–156; BP diastolic 72–86; PULSE 73–100; RESP 17–20; TEMP 97.7–98.6; O2SAT 94–96
[2016-09-05] MEDS: prednisoLONE ACETATE 1% OPHT SUSP 5 ML BTL RIGHT EYE SCH ×8 (02:00→23:00)
[2016-09-05] MEDS: CHLORHEXIDINE GLUCONATE 2 % 1 PACK (2 CLOTHS) TOP SCH (03:40)
[2016-09-05] MEDS: SODIUM CHLORIDE 0.9% FLUSH 10 ML FLUSH IVF PRN (06:04)
[2016-09-05] MEDS: cefTRIAXone INJ 1,000 MG in SODIUM CHLORIDE 0.9% INJ 100 ML IV SCH (06:04)
[2016-09-05] MEDS: INSULIN NovoLIN REGULAR SUPPLEMENTAL SCALE SQ SCH ×4 (07:00→20:50)
[2016-09-05] MEDS: SODIUM CHLORIDE 0.9% FLUSH 10 ML FLUSH SCH ×2 (09:00→20:49)
[2016-09-05] MEDS: DILTIAZEM-CD 120 MG CAP ER PO SCH (09:51)
[2016-09-05] MEDS: LORazepam 2 MG/ML VIAL IV PUSH PRN (09:51)
[2016-09-05] MEDS: predniSONE 10 MG TAB PO SCH ×4 (09:51→20:49)
[2016-09-05] MEDS: CHOLECALCIFEROL (VIT D3) 5000 UNIT CAP PO SCH (09:52)
[2016-09-05] MEDS: PANTOPRAZOLE SODIUM 40 MG VIAL IV SCH (09:52)
[2016-09-05] MEDS: PARoxetine 25 MG CONTROLLED RELEASE TAB PO SCH (09:52)
[2016-09-05] MEDS: AZITHROMYCIN 250 MG TAB PO SCH (09:52)
[2016-09-05] MEDS: DOCUSATE SODIUM 100 MG CAP PO SCH ×2 (09:52→20:49)
[2016-09-05] MEDS: POTASSIUM CHLORIDE 20 MEQ CONTROLLED RELEASE TAB PO SCH (09:52)
[2016-09-05] MEDS: ENOXAPARIN SODIUM 40 MG/0.4 ML SYRINGE SQ SCH (09:54)
--- NOTE | 2016-09-05 10:19 | HHI.PR ---
Subjective Remarks feeling better today no new rashes tolerating prednisone well will dc rocephin and place on ceftin po anticipate dc home soon Objective Vital Signs Date Time Temp Pulse Resp B/P Pulse Ox O2 Delivery O2 Flow Rate FiO2 09/05/16 08:00 98.6 80 18 128/76 95 09/05/16 04:00 Room Air 09/05/16 04:00 98.2 79 18 135/81 95 09/05/16 00:00 98.1 95 18 156/72 94 09/05/16 00:00 Room Air 09/04/16 20:11 99 09/04/16 20:00 98.3 89 16 128/74 97 09/04/16 20:00 Room Air 09/04/16 16:00 97.9 63 18 142/89 93 09/04/16 12:00 97.6 104 18 145/90 94 I/O 09/04/16 09/04/16 09/04/16 09/05/16 09/05/16 09/05/16 07:00 15:00 23:00 07:00 15:00 23:00 Intake Total 0 ml 720 ml 480 ml 200 ml Balance 0 ml 720 ml 480 ml 200 ml Intake Oral 0 ml 720 ml 480 ml 100 ml IV Total 100 ml # Voids 3 4 1 1 # Bowel Movements 0 0 0 0 Result Diagram: 09/03/1645 09/03/16 0645 Objective Remarks GENERAL: Well-nourished, well-developed patient. SKIN: Warm and dry. HEAD: Normocephalic. EYES: No scleral icterus. No injection or drainage. NECK: Supple, trachea midline. No JVD or lymphadenopathy. CARDIOVASCULAR: Regular rate and rhythm without murmurs, gallops, or rubs. RESPIRATORY: Breath sounds equal bilaterally. No accessory muscle use no wheezing. GASTROINTESTINAL: Abdomen soft, non-tender, nondistended. EXTREMITIES: No cyanosis, or edema. NEUROLOGICAL: Awake, alert, and oriented x 3. Non-focal. Medications and IVs Inpatient Medications Acetaminophen (Tylenol) 650 mg Q6H PRN PO PAIN 1-10 AND/OR FEVER >101F; Start 08/29/16 at 18:45 Acetaminophen/ Butalbital/ Caffeine (Fioricet 325-50-40) 2 tab Q4H PRN PO HEADACHE PAIN 6-10 Last administered on 09/04/16 22:02; Start 08/31/16 at 22:00 Acetaminophen/ Hydrocodone Bitart ([place] 5-325 Mg) 1 tab Q4H PRN PO PAIN SCALE 1 TO 5 Last administered on 08/31/16 09:25; Start 08/29/16 at 18:45 Albuterol Sulfate (Albuterol Neb) 2.5 mg Q2HR NEB PRN INH SOB/WHEEZING; Start 08/29/16 at 18:45 Albuterol/ Ipratropium (Duoneb Neb) 1 ampule Q4HR NEB INH Last administered on 09/02/16 20:00; Start 08/29/16 at 20:00; Stop 09/02/16 at 20:00; Status DC Amlodipine Besylate (Norvasc) 2.5 mg DAILY PO Last administered on 09/02/16 08 :47; Start 09/01/16 at 09:00; Stop 09/03/16 at 08:41; Status DC Aspirin (Aspirin Chew) 324 mg ONCE ONCE CHEW Last administered on 08/29/16 22 :12; Start 08/29/16 at 22:00; Stop 08/29/16 at 22:01; Status DC Azithromycin 500 mg 500 mg DAILY PO Last administered on 09/05/16 09:52; Start 08/30/16 at 17:00 Azithromycin/ Sodium Chloride (Zithromax Inj/ NS 250 ml Inj) 250 ml @ 250 mls/ hr ONCE STAT IV Last administered on 08/29/16 17:58; Start 08/29/16 at 17:13 ; Stop 08/29/16 at 18:12; Status DC Ceftriaxone Sodium 2000 mg/ Sodium Chloride 100 ml @ 200 mls/hr ONCE STAT IV Last administered on 08/29/16 17:25; Start 08/29/16 at 17:13; Stop 08/29/16 at 17:42; Status DC Ceftriaxone Sodium/Sodium Chloride (Rocephin Inj/NS Inj) 100 ml @ 200 mls/hr Q12H IV Last administered on 09/05/16 06:04; Start 08/30/16 at 05:00 Chlorhexidine Gluconate (Chlorhexidine 2% Cloth) 3 pack UNSCH PRN TOP HYGIENIC CARE; Start 08/29/16 at 18:45 Cholecalciferol (Vitamin D3) 5,000 units DAILY PO Last administered on 09:52; Start 09/01/16 at 09:00 Dextrose (D50w (Vial) Inj) 25 ml UNSCH PRN IV PUSH HYPOGLYCEMIA-SEE COMMENTS; Start 09/01/16 at 07:45 Diltiazem HCl (Cardizem Cd) 120 mg DAILY PO Last administered on 09/05/16 09: 51; Start 09/03/16 at 09:00 Diphenhydramine HCl (Benadryl) 25 mg Q8H PRN PO FOR ITCHING Last administered on 09/04/16 21:59; Start 09/04/16 at 14:30 Docusate Sodium (Colace) 100 mg BID PO Last administered on 09/05/16 09:52; Start 08/29/16 at 21:00 Enoxaparin Sodium (Lovenox Inj) 40 mg Q24H SQ Last administered on 09/05/16 09 :54; Start 08/30/16 at 09:00 Glucagon (Glucagon Inj) 1 mg UNSCH PRN OTHER HYPOGLYCEMIA-SEE COMMENTS; Start 09/01/16 at 07:45 Insulin Aspart 1 1 ACHS SLIDING SCALE SQ Last administered on 09/01/16 05:18 ; Start 08/30/16 at 11:00; Stop 09/01/16 at 08:34; Status DC Insulin Human Regular (NovoLIN R SUPPLEMENTAL SCALE) 1 ACHS SLIDING SCALE SQ Last administered on 09/05/16 07:00; Start 09/01/16 at 11:00 Ketamine HCl 20 mg 20 mg ONCE ONCE IV PUSH Last administered on 08/29/16 16: 33; Start 08/29/16 at 16:30; Stop 08/29/16 at 16:31; Status DC Lorazepam (Ativan Inj) 1 mg ONCE ONCE IV PUSH Last administered on 08/29/16 18:04; Start 08/29/16 at 18:00; Stop 08/29/16 at 18:01; Status DC Lorazepam 1 mg 1 mg Q6H PRN IV PUSH ANXIETY Last administered on 09/05/16 09: 51; Start 08/29/16 at 18:45 Magnesium Oxide 800 mg 800 mg UNSCH PRN PO For Magnesium 1.2 - 1.6 mg/dL; Start 08/29/16 at 18:45; Stop 08/31/16 at 15:07; Status DC Magnesium Sulfate 2 gm/Sodium Chloride 100 ml @ 50 mls/hr UNSCH PRN IV For Magnesium 1.2 - 1.6 mg/dL; Start 08/29/16 at 18:45; Stop 08/31/16 at 15:07; Status DC Magnesium Sulfate/ Sodium Chloride (Magnesium Sulfate Inj/NS Inj) 100 ml @ 50 mls/hr UNSCH PRN IV For Magnesium 0.9 - 1.1 mg/dL; Start 08/29/16 at 18:45; Stop 08/31/16 at 15:07; Status DC Methylprednisolone Sodium Succinate (SoluMEDROL INJ) 40 mg Q8H IV Last administered on 09/04/16 12:37; Start 09/03/16 at 04:00; Stop 09/04/16 at 14:21 ; Status DC Metoprolol Tartrate 5 mg 5 mg ONCE ONCE IV PUSH Last administered on 17:24; Start 08/29/16 at 17:15; Stop 08/29/16 at 17:16; Status DC Miscellaneous (Pill Splitter) 1 ea UNSCH PRN OTHER SEE LABEL COMMENTS; Start at 18:45 Miscellaneous Information 1 Q361D XX ; Start 08/29/16 at 18:45 Montelukast Sodium (Singulair) 10 mg HS PO Last administered on 09/04/16 21:59 ; Start 08/30/16 at 21:00 Morphine Sulfate (Morphine Inj) 2 mg Q2H PRN IV PAIN SCALE 6 TO 10 Last administered on 08/30/16 19:06; Start 08/29/16 at 18:45; Stop 08/31/16 at 18:33 ; Status DC Ondansetron HCl (Zofran Inj) 4 mg Q6H PRN IV NAUSEA OR VOMITING Last administered on 09/03/16 12:14; Start 08/29/16 at 18:45 Pantoprazole Sodium (Protonix Inj) 40 mg DAILY IV Last administered on 09:52; Start 08/30/16 at 09:00 Paroxetine HCl (Paxil Cr) 25 mg DAILY PO Last administered on 09/05/16 09:52; Start 09/01/16 at 09:00 Pharmacy Profile Note (Vancomycin Consult Pharmacy) 0 ml @ 0 mls/hr UNSCH OTHER ; Start 08/30/16 at 08:00; Stop 08/30/16 at 08:00; Status DC Pneumococcal Polyvalent Vaccine (Pneumovax-23 Inj) 25 mcg ONCE ONCE IM Last administered on 08/31/16 09:27; Start 08/31/16 at 10:00; Stop 08/31/16 at 10:01 ; Status DC Potassium Chloride/Dextrose/ Sod Cl (D5-1/2 NS + KCl 20 Meq Inj) 1,000 ml @ 70 mls/hr [id number] IV Last administered on 08/29/16 20:32; Start 08/29/16 at 18:42 ; Stop 08/30/16 at 07:51; Status DC Potassium Phosphate 2000 mg 2,000 mg UNSCH PRN PO/TUBE SEE LABEL COMMENTS; Start 08/29/16 at 18:45; Stop 08/31/16 at 15:07; Status DC Potassium Phosphate 30 mmol/ Sodium Chloride 260 ml @ 42 mls/hr UNSCH PRN IV SEE LABEL COMMENTS; Start 08/29/16 at 18:45; Stop 08/31/16 at 15:07; Status DC Potassium Bicarb/ Potassium Chloride 50 meq 50 meq UNSCH PRN PO For Potassium 3.3 - 3.5 mEq/L; Start 08/29/16 at 18:45; Stop 08/31/16 at 15:07; Status DC Potassium Chloride (KCl 20 Meq Premix Inj) 100 ml @ 50 mls/hr Q2H PRN IV For Potassium 2.8 - 3.2 mEq/L; Start 08/29/16 at 18:45; Stop 08/31/16 at 15:07; Status DC Potassium Chloride (KCl) 20 meq DAILY PO Last administered on 09/05/16 09:52; Start 09/02/16 at 09:00 Prednisolone Acetate (Pred Forte 1% Opth Susp) 1 drop Q3HR RIGHT EYE Last administered on 09/05/16 10:00; Start 09/02/16 at 20:00 Prednisone (Deltasone) 10 mg QID PO Last administered on 09/05/16 09:51; Start 09/04/16 at 18:00 Sodium Chloride (NS 1000 ml Inj) 1,000 ml @ 1,000 mls/hr Q1H ONCE IV Last administered on 08/29/16 19:21; Start 08/29/16 at 17:40; Stop 08/29/16 at 18:39 ; Status DC Sodium Chloride (NS Flush) 2 ml BID .XX Last administered on 09/05/16 09:00; Start 08/29/16 at 21:00 Sodium Phosphate/ Sodium Chloride (Sodium Phosphate Inj/NS 250 ml Inj) 250 ml @ 42 mls/hr UNSCH PRN IV For Phosphorus < 2.5 mg/dL; Start 08/29/16 at 18:45; Stop 08/31/16 at 15:07; Status DC Assessment and Plan Problem List: (1) Status asthmaticus Status: Resolved (2) Severe sepsis Status: Acute Plan: admission with antibiotic therapy Assessment and Plan will dc iv rocephin and add ceftin Problem Qualifiers (1) Status asthmaticus: Qualified Code: J45.902 - Asthma with status asthmaticus, unspecified asthma severity Frankie Haezl DO Sep 05, 2016 10:19
[2016-09-05] MEDS: ACETAMIN 325 MG/BUTALBITAL 50 MG/CAFFEINE 40 MG TAB PO PRN ×2 (16:40→20:48)
[2016-09-05] MEDS: MONTELUKAST SODIUM 10 MG TAB PO SCH (20:49)
[2016-09-05] MEDS: diphenhydrAMINE HCL 25 MG CAP PO PRN (20:49)
[2016-09-05] MEDS: CEFUROXIME AXETIL 500 MG TAB PO SCH (20:49)
[2016-09-06] VITALS (7 sets, daily range): BP systolic 125–147; BP diastolic 70–84; PULSE 80–94; RESP 16–20; TEMP 97.7–99.3; O2SAT 93–97
[2016-09-06] MEDS: LORazepam 2 MG/ML VIAL IV PUSH PRN ×2 (00:07→23:42)
[2016-09-06] MEDS: prednisoLONE ACETATE 1% OPHT SUSP 5 ML BTL RIGHT EYE SCH ×8 (02:00→23:00)
[2016-09-06] MEDS: CHLORHEXIDINE GLUCONATE 2 % 1 PACK (2 CLOTHS) TOP SCH (04:00)
[2016-09-06] MEDS: INSULIN NovoLIN REGULAR SUPPLEMENTAL SCALE SQ SCH ×4 (05:22→21:00)
[2016-09-06] MEDS: AZITHROMYCIN 250 MG TAB PO SCH (09:01)
[2016-09-06] MEDS: CEFUROXIME AXETIL 500 MG TAB PO SCH ×2 (09:01→21:29)
[2016-09-06] MEDS: CHOLECALCIFEROL (VIT D3) 5000 UNIT CAP PO SCH (09:01)
[2016-09-06] MEDS: PARoxetine 25 MG CONTROLLED RELEASE TAB PO SCH (09:01)
[2016-09-06] MEDS: POTASSIUM CHLORIDE 20 MEQ CONTROLLED RELEASE TAB PO SCH (09:01)
[2016-09-06] MEDS: PANTOPRAZOLE SOD 40 MG DELAYED RELEASE TAB PO SCH (09:02)
[2016-09-06] MEDS: ENOXAPARIN SODIUM 40 MG/0.4 ML SYRINGE SQ SCH (09:02)
[2016-09-06] MEDS: predniSONE 10 MG TAB PO SCH ×4 (09:02→21:29)
[2016-09-06] MEDS: DILTIAZEM-CD 120 MG CAP ER PO SCH (09:02)
[2016-09-06] MEDS: DOCUSATE SODIUM 100 MG CAP PO SCH ×2 (09:02→21:29)
[2016-09-06] MEDS: SODIUM CHLORIDE 0.9% FLUSH 10 ML FLUSH SCH ×2 (09:03→21:00)
[2016-09-06] MEDS: ACETAMIN 325 MG/BUTALBITAL 50 MG/CAFFEINE 40 MG TAB PO PRN ×3 (09:10→21:47)
--- NOTE | 2016-09-06 09:45 | HHI.PR ---
Subjective Remarks Patient seen at bedside. Alert and cooperative Denies and CP or SOB on RA. Very anxious about being discharged. Continues to report headaches Objective Vital Signs Date Time Temp Pulse Resp B/P Pulse Ox O2 Delivery O2 Flow Rate FiO2 09/06/16 08:00 98.2 81 16 147/76 97 09/06/16 04:30 Room Air 09/06/16 04:30 98.0 80 17 125/80 97 09/06/16 00:00 Room Air 09/06/16 00:00 99.3 90 17 137/70 96 09/05/16 20:30 97.7 89 17 138/85 96 09/05/16 20:30 Room Air 09/05/16 20:00 91 09/05/16 16:00 98.5 87 18 132/73 95 09/05/16 12:00 98.1 100 20 123/86 96 I/O 09/05/16 09/05/16 09/05/16 09/06/16 09/06/16 09/06/16 07:00 15:00 23:00 07:00 15:00 23:00 Intake Total 200 ml 480 ml 900 ml 950 ml Balance 200 ml 480 ml 900 ml 950 ml Intake Oral 100 ml 480 ml 900 ml 950 ml IV Total 100 ml # Voids 1 2 1 3 # Bowel Movements 0 0 0 Result Diagram: 09/03/1664409/03/16644 Objective Remarks GENERAL: Alert and cooperative SKIN: Warm and dry. HEAD: Normocephalic. EYES: Right eye injected. NECK: Supple, trachea midline. No JVD or lymphadenopathy. CARDIOVASCULAR: Regular rate and rhythm without murmurs, gallops, or rubs. RESPIRATORY: Breath sounds wheezy. No accessory muscle use. GASTROINTESTINAL: Abdomen soft, non-tender, nondistended. MUSCULOSKELETAL: No cyanosis, or edema. BACK: Nontender without obvious deformity. No CVA tenderness. Medications and IVs Current Medications Medications (Trade) Dose Ordered Sig/Lady Route Start Time Stop Time Status Last Admin (NS Flush) 2 ml UNSCH PRN IVF 08/29/16 16:30 09/05/16 06:04 (Ativan Inj) 1 mg Q6H PRN IV PUSH 08/29/16 18:45 09/06/16 00:07 (NS Flush) 2 ml UNSCH PRN .XX 08/29/16 18:45 08/31/16 02:29 (NS Flush) 2 ml BID .XX 08/29/16 21:00 09/06/16 09:03 (Tylenol) 650 mg Q6H PRN PO 08/29/16 18:45 ([place] 5-325 Mg) 1 tab Q4H PRN PO 08/29/16 18:45 08/31/16 09:25 (Zofran Inj) 4 mg Q6H PRN IV 08/29/16 18:45 09/03/16 12:14 (Colace) 100 mg BID PO 08/29/16 21:00 09/06/16 09:02 Miscellaneous Information 1 Q361D XX 08/29/16 18:45 (Chlorhexidine 2% Cloth) Taper DAILY@04 TOP 08/30/16 04:00 08/26/17 03:59 (Chlorhexidine 2% Cloth) 3 pack UNSCH PRN TOP 08/29/16 18:45 (Zithromax) 500 mg DAILY PO 08/30/16 17:00 09/06/16 09:01 (Singulair) 10 mg HS PO 08/30/16 21:00 09/05/16 20:49 (Lovenox Inj) 40 mg Q24H SQ 08/30/16 09:00 09/06/16 09:02 (Pill Splitter) 1 ea UNSCH PRN OTHER 08/30/16 09:00 (Paxil Cr) 25 mg DAILY PO 09/01/16 09:00 09/06/16 09:01 (Pill Splitter) 1 ea UNSCH PRN OTHER 08/31/16 18:45 (Fioricet 325-50-40) 1 tab Q4H PRN PO 08/31/16 22:00 09/05/16 16:40 (Fioricet 325-50-40) 2 tab Q4H PRN PO 08/31/16 22:00 09/06/16 09:10 (D50w (Vial) Inj) 25 ml UNSCH PRN IV PUSH 09/01/16 07:45 (Glucagon Inj) 1 mg UNSCH PRN OTHER 09/01/16 07:45 (Vitamin D3) 5,000 units DAILY PO 09/01/16 09:00 09/06/16 09:01 (KCl) 20 meq DAILY PO 09/02/16 09:00 09/06/16 09:01 (Pred Forte 1% Opth Susp) 1 drop Q3HR RIGHT EYE 09/02/16 20:00 09/06/16 08:00 (Cardizem Cd) 120 mg DAILY PO 09/03/16 09:00 09/06/16 09:02 (Deltasone) 10 mg QID PO 09/04/16 18:00 09/06/16 09:02 (Benadryl) 25 mg Q8H PRN PO 09/04/16 14:30 09/05/16 20:49 (Ceftin) 500 mg Q12HR PO 09/05/16 21:00 09/06/16 09:01 (Protonix) 40 mg DAILY PO 09/06/16 09:00 09/06/16 09:02 Assessment and Plan Problem List: (1) Asthma Status: Acute Plan: Pulmonary consulted and managing. (2) Severe sepsis Status: Acute Plan: On antibiotics has remained afebrile. Labs ordered for today (3) Hypertension Status: Acute Plan: Continue current treatment blood pressure better controlled with medication changes (4) Headache Status: Acute Plan: Reports headache Has Fioricet as needed been taking every 4-[address] ordered. (5) Eye pain Status: Acute Plan: Iproving Ophthalmology consulted and managing gtts ordered. (6) Vitamin D deficiency Status: Acute Plan: Replacement added. (7) Anxiety Status: Acute Plan: On Paxil. Anxious about anticipated discharge (8) Elevated glucose Status: Acute Plan: BS AC and HS ordered. Labile with steroid use. Has SS. HAIC 6.3 (9) Hypokalemia Status: Acute Plan: On Replacement labs ordered for today (10) Insomnia Status: Acute Plan: Trazodone ordered nightly Assessment and Plan Assessment and plan discussed with Dr. Hazel Discharge Planning Anticipate discharge home with [facility] Problem Qualifiers (1) Hypertension: Qualified Code: I10 - Essential hypertension Sadaf Gee Sep 06, 2016 09:45
--- NOTE | 2016-09-06 11:15 | RADRPT ---
EXAM DATE/TIME: 09/06/2016 10:30 [place] COMPARISON: No previous studies available for comparison. INDICATIONS : Cephalgia. RADIATION DOSE: 56.35 CTDIvol (mGy) MEDICAL HISTORY : None SURGICAL HISTORY : None. ENCOUNTER: Initial ACUITY: 1 day PAIN SCALE: 4/10 LOCATION: cranial TECHNIQUE: Multiple contiguous axial images were obtained of the head. Using automated exposure control and adj ustment of the mA and/or kV according to patient size, radiation dose was kept as low as reasonably a chievable to obtain optimal diagnostic quality images. FINDINGS: CEREBRUM: The ventricles are normal for age. No evidence of midline shift, mass lesion, hemorrhage or acute in farction. No extra-axial fluid collections are seen. POSTERIOR FOSSA: The cerebellum and brainstem are intact. The 4th ventricle is midline. The cerebellopontine angle i s unremarkable. EXTRACRANIAL: The visualized portion of the orbits is intact. There are bilateral air-fluid levels in the maxillary sinuses with small air-fluid levels and mucosal thickening and ethmoidal air cells and frontal sinus es. SKULL: The calvaria is intact. No evidence of skull fracture. CONCLUSION: 1. No acute hemorrhage or mass effect. 2. Evidence of acute noel sinusitis Keegan Estrella MD on September 06, 2016 at 11:11 Board Certified Radiologist. This report was verified electronically.
[2016-09-06] MEDS: diphenhydrAMINE HCL 25 MG CAP PO PRN ×2 (12:14→21:47)
[2016-09-06 14:34] LABS: BASOPHIL # 0.1 TH/MM3 (0-0.2); BASOPHIL % 0.5 % (0.0-2.0); EOSINOPHIL # 0.1 TH/MM3 (0-0.4); EOSINOPHIL % 0.6 % (0.0-4.0); HEMATOCRIT 38.7 % (35.0-46.0); LYMPH % 16.5 % (9.0-44.0); LYMPHOCYTE # 3.7 TH/MM3 (1.0-4.8); MEAN CELL VOLUME 85.7 FL (80.0-100.0); MEAN CORPUSCULAR HEMOGLOBIN 29.1 PG (27.0-34.0); MEAN CORPUSCULAR HGB CONC 33.9 % (32.0-36.0); NEUT % 75.4 % (16.0-70.0); PLATELET COUNT 410 TH/MM3 (150-450); RED BLOOD COUNT 4.51 MIL/MM3 (4.00-5.30); RED CELL DISTRIBUTION WIDTH 14.6 % (11.6-17.2); WHITE BLOOD COUNT 22.5 TH/MM3 (4.0-11.0)
[2016-09-06 14:36] LABS: HEMO FLAGS AUTO DIFF
[2016-09-06 14:46] LABS: ALKALINE PHOSPHATASE 147 U/L (45-117); ALT (GPT) 80 U/L (10-53); ANION GAP 9 MEQ/L (5-15); AST (GOT) 28 U/L (15-37); BICARBONATE 27.1 MEQ/L (21.0-32.0); BLOOD UREA NITROGEN 15 MG/DL (7-18); CHLORIDE 97 MEQ/L (98-107); GLOMERULAR FILTRATION RATE 76 ML/MIN (>89); POTASSIUM 3.3 MEQ/L (3.5-5.1); SODIUM (NA) 133 MEQ/L (136-145); TOTAL BILIRUBIN ADULT 0.3 MG/DL (0.2-1.0)
[2016-09-06 15:05] LABS: BANDS 2 % (0-6); METAMYELOCYTES 2 % (0-1); NEUTROPHIL # MANUAL DIFF 16.2 TH/MM3 (1.8-7.7); POLYS (SEG NEUTROPHILS) 68 % (16-70); WBC DIFF SAMPLE 100
[2016-09-06 15:06] LABS: PLATELET ESTIMATE SMEAR NORMAL (NORMAL); PLATELET MORPHOLOGY NORMAL (NORMAL); SCAN/DIFF FINAL DIFF MANUAL
--- NOTE | 2016-09-06 20:07 | HHI.PR ---
Subjective Remarks 40 YOAA female with Br asthma exac. bronchitis Feels better Occ cough Wheezing better Ambulates Anxious Objective Vital Signs Vital Signs Date Time Temp Pulse Resp B/P Pulse Ox O2 Delivery O2 Flow Rate FiO2 09/06/16 16:00 98.1 94 20 131/84 96 09/06/16 12:00 97.7 90 18 138/76 93 09/06/16 08:00 97 Room Air 09/06/16 08:00 98.2 81 16 147/76 97 09/06/16 04:30 Room Air 09/06/16 04:30 98.0 80 17 125/80 97 09/06/16 00:00 Room Air 09/06/16 00:00 99.3 90 17 137/70 96 09/05/16 20:30 97.7 89 17 138/85 96 09/05/16 20:30 Room Air I/O 09/05/16 09/05/16 09/05/16 09/06/16 09/06/16 09/06/16 07:00 15:00 23:00 07:00 15:00 23:00 Intake Total 200 ml 480 ml 900 ml 950 ml 480 ml Balance 200 ml 480 ml 900 ml 950 ml 480 ml Intake Oral 100 ml 480 ml 900 ml 950 ml 480 ml IV Total 100 ml # Voids 1 2 1 3 3 # Bowel Movements 0 0 0 1 Result Diagram: 09/06/16 1410 09/06/16 1410 A/P Assessment and Plan Bronchial asthma exac Bronchitis Leucocytosis RML Atelactesis PLAN: PO pred Aerosol nebs Cont Abx DC plans underway. Oleg Gunter MD Sep 06, 2016 20:07
[2016-09-06] MEDS ORDERED: traZODone HCL 50 MG TAB PO SCH (21:00)
[2016-09-06] MEDS: MONTELUKAST SODIUM 10 MG TAB PO SCH (21:29)
[2016-09-07] MEDS: prednisoLONE ACETATE 1% OPHT SUSP 5 ML BTL RIGHT EYE SCH ×3 (02:00→09:16)
[2016-09-07 03:45] VITALS: BP 124/84; PULSE 83; RESP 16; TEMP 98.4; O2SAT 95
[2016-09-07] MEDS: CHLORHEXIDINE GLUCONATE 2 % 1 PACK (2 CLOTHS) TOP SCH (04:00)
[2016-09-07] MEDS: INSULIN NovoLIN REGULAR SUPPLEMENTAL SCALE SQ SCH (06:02)
[2016-09-07] MEDS: diphenhydrAMINE HCL 25 MG CAP PO PRN (06:06)
[2016-09-07] MEDS: ACETAMINOPHEN/HYDROcodone 325 MG/5 MG TAB PO PRN ×2 (06:06→11:25)
[2016-09-07 08:00] VITALS: BP 152/78; PULSE 71; RESP 18; TEMP 98.5; O2SAT 98
[2016-09-07] MEDS: POTASSIUM CHLORIDE 20 MEQ CONTROLLED RELEASE TAB PO SCH (09:00)
[2016-09-07] MEDS: SODIUM CHLORIDE 0.9% FLUSH 10 ML FLUSH SCH (09:00)
--- NOTE | 2016-09-07 09:10 | HHI.FF ---
Face to Face Verification Diagnosis: (1) Status asthmaticus Home Health Nursing Order: Medical education Nursing assessment with vital signs I have seen patient Isabelle Machado on 09/07/16. My clinical findings support the need for the requested home health care services because: Deconditioned w/ increased weakness I certify that my clinical findings support that this patient is homebound because: Need for psychosocial assistance Sadaf Gee [facility] Sep 07, 2016 09:10
[2016-09-07] MEDS: PARoxetine 25 MG CONTROLLED RELEASE TAB PO SCH (09:11)
[2016-09-07] MEDS: predniSONE 10 MG TAB PO SCH (09:11)
[2016-09-07] MEDS: CEFUROXIME AXETIL 500 MG TAB PO SCH (09:11)
[2016-09-07] MEDS: PANTOPRAZOLE SOD 40 MG DELAYED RELEASE TAB PO SCH (09:11)
[2016-09-07] MEDS: CHOLECALCIFEROL (VIT D3) 5000 UNIT CAP PO SCH (09:11)
[2016-09-07] MEDS: AZITHROMYCIN 250 MG TAB PO SCH (09:11)
[2016-09-07] MEDS: DILTIAZEM-CD 120 MG CAP ER PO SCH (09:11)
[2016-09-07] MEDS: DOCUSATE SODIUM 100 MG CAP PO SCH (09:12)
[2016-09-07] MEDS: ENOXAPARIN SODIUM 40 MG/0.4 ML SYRINGE SQ SCH (09:12)
[2016-09-07] MEDS ORDERED: AZIT250T3 PO (09:37)
[2016-09-07] MEDS ORDERED: CARD120C4 PO (09:37)
[2016-09-07] MEDS ORDERED: PRED1SUS6 RIGHT EYE (09:37)
[2016-09-07] MEDS ORDERED: PAXI25TA5 PO (09:37)
[2016-09-07] MEDS ORDERED: CEFT500T3 PO (09:37)
[2016-09-07] MEDS ORDERED: TRAZ50TA12 PO (09:37)
[2016-09-07] MEDS ORDERED: MONT10TA4 PO (09:37)
[2016-09-07] MEDS ORDERED: PRED10PA PO (09:37)
--- NOTE | 2016-09-07 09:49 | HHI.DS ---
Discharge Summary Admission Date Aug 29, 2016 at 17:49 Admitting Diagnosis status asthmaticus, sepsis Brief History 40 yo F with PMH of asthma, hypertension, obesity who presents to [facility] with shortness of breath. She states that she previously had no respiratory issues until February 2016. She states since then she has had recurrent episodes of "bronchitis" and has been on and off of prednisone tapers under the care of Dr. Dawson White with pulmonology. She states she has had PFTS consistent with asthma. She states she was at work and had just run to a code and became acutely short of breath. She states she is around secondhand smoke at work. She presented to [facility] emergency department with per E VAC with severe bronchospasm. She had normal room air sats upon E VAC arrival. She was given Solu-Medrol and albuterol nebs 3 per E VAC. Upon arrival to the emergency department she had severe wheezing and increased work of breathing. She was placed on BiPAP 10 over 5, given ketamine 20 mill grams IV, given DuoNeb 3, magnesium 1 g. test x-ray demonstrate some basilar atelectasis without consolidation. White blood cell count was 17. Lactic acid 3.1. Creatinine 1.31. She received 2 L normal saline bolus, azithromycin, Rocephin. She remains on BiPAP but reports significant subjective improvement since arrival to the emergency department. She denies any recent travel, leg swelling, personal or family history of thromboembolic disease, surgery. She states she has not been worked up for PE in the past. She did have cough productive of clear/white sputum. She denies fever, hemoptysis. She had pleuritic tight chest pain anteriorly without radiation. She was on a prednisone prior to admission for the last 4 days. CBC/BMP: 09/06/16 1410 09/06/16 1410 Significant Findings Laboratory Tests Test 09/06/16 14:10 White Blood Count 22.5 TH/MM3 (4.0-11.0) Neutrophils (%) (Auto) 75.4 % (16.0-70.0) Neutrophils # (Auto) 17.0 TH/MM3 (1.8-7.7) Monocytes # (Auto) 1.6 TH/MM3 (0-0.9) Neutrophils # (Manual) 16.2 TH/MM3 (1.8-7.7) Metamyelocytes 2 % (0-1) Sodium Level 133 MEQ/L (136-145) Potassium Level 3.3 MEQ/L (3.5-5.1) Chloride Level 97 MEQ/L (98-107) Estimat Glomerular Filtration 76 ML/MIN (>89) Rate Random Glucose 183 MG/DL (74-106) Calcium Level 8.4 MG/DL (8.5-10.1) Alanine Aminotransferase 80 U/L (10-53) (ALT/SGPT) Alkaline Phosphatase 147 U/L (45-117) Albumin 3.3 GM/DL (3.4-5.0) PE at Discharge GENERAL: Alert and cooperative SKIN: Warm and dry. HEAD: Normocephalic. EYES: Right eye injected. NECK: Supple, trachea midline. No JVD or lymphadenopathy. CARDIOVASCULAR: Regular rate and rhythm without murmurs, gallops, or rubs. RESPIRATORY: Breath sounds wheezy. No accessory muscle use. GASTROINTESTINAL: Abdomen soft, non-tender, nondistended. MUSCULOSKELETAL: No cyanosis, or edema. BACK: Nontender without obvious deformity. No CVA tenderness. Hospital Course 40 yo F with PMH of asthma, hypertension, obesity who presents to [facility] with shortness of breath. She states that she previously had no respiratory issues until February 2016. She states since then she has had recurrent episodes of "bronchitis" and has been on and off of prednisone tapers under the care of Dr. Dawson White with pulmonology. She states she has had PFTS consistent with asthma. She states she was at work and had just run to a code and became acutely short of breath. She states she is around secondhand smoke at work. She presented to [facility] emergency department with per E VAC with severe bronchospasm. She had normal room air sats upon E VAC arrival. She was given Solu-Medrol and albuterol nebs 3 per E VAC. Upon arrival to the emergency department she had severe wheezing and increased work of breathing. She was placed on BiPAP 10 over 5, given ketamine 20 mill grams IV, given DuoNeb 3, magnesium 1 g. test x-ray demonstrate some basilar atelectasis without consolidation. White blood cell count was 17. Lactic acid 3.1. Creatinine 1.31. She received 2 L normal saline bolus, azithromycin, Rocephin. She remains on BiPAP but reports significant subjective improvement since arrival to the emergency department. She denies any recent travel, leg swelling, personal or family history of thromboembolic disease, surgery. She states she has not been worked up for PE in the past. She did have cough productive of clear/white sputum. She denies fever, hemoptysis. She had pleuritic tight chest pain anteriorly without radiation. She was on a prednisone prior to admission for the last 4 days. Was followed closely with medical team and pulmonary. Patient is on room air without any wheezing. She is being discharged home. [facility] was requested however with her insurance not possible. Blood work ordered for to be faxed to office to monitor WBC which are elevated. She is also being discharged with antibiotics and prednisone taper. She was also followed by the optmalogist for her right eye. No pain or vision change and resolves on its own within 1-2 weeks. Increase Prednisolone acetate 1% to q3h OD to help with the irritation she is feeling better. Patient is discharged home follow up appt made. Discharge Disposition: Disch w/ Home Health Serv Discharge Instructions DIET: Follow Instructions for: As Tolerated, No Restrictions Activities you can perform: Regular-No Restrictions Follow up Referrals: Appointment for Follow Up - 09/13/16 @ [facility] Pulmonology New Orders: BASIC METABOLIC PROF - 2 Days CBC NO DIFF - 2 Days New Medications: Prednisone (21) 10 mg tab Dose Pack (Prednisone (21) 10 mg tab Dose Pack) 10 Mg Pack 10 MG PO DIRECTED Inflammation #1 Ref 0 DSPK Azithromycin (Azithromycin) 250 Mg Tab 500 MG PO DAILY Infection #7 TAB Cefuroxime (Ceftin) 500 Mg Tab 500 MG PO Q12HR Infection #14 TAB Diltiazem CD 24 HR (Cardizem CD 24 HR) 120 Mg Caper 120 MG PO DAILY Blood Pressure Management #30 CAP Montelukast (Montelukast) 10 Mg Tab 10 MG PO HS Asthma Management #30 TAB Paroxetine ER (Paxil CR) 25 Mg Tab 25 MG PO DAILY Anxiety and/or Insomnia #30 TAB Prednisolone Acetate Opth (Prednisolone Acetate Opth) 1% Susp 1 DROP RIGHT EYE Q3HR Inflammation #6 BOTTLE Trazodone (Trazodone) 50 Mg Tab 50 MG PO HS Insomnia #30 TAB Sadaf Gee Sep 07, 2016 09:49
== END 2016-09-07 12:10 | disposition home or self-care (01) | DRG 872 ==
LOC: NEPE 16:06 → NEDA 17:49 → NEDH 08-30 00:23 → N04A 08-30 14:25
PROVIDERS: ADMIT Anesthesiology; ATTEND Anesthesiology
PROC: 5A09357 Assistance with Respiratory Ventilation, Less than 24 Consecutive Hours, Continuous Positive Airway Pressure (ICD-10-PCS; principal; 2016-08-29)
DX: A41.9 Sepsis, unspecified organism (principal); E87.2 Acidosis; N17.9 Acute kidney failure, unspecified; J45.902 Unspecified asthma with status asthmaticus; E55.9 Vitamin D deficiency, unspecified; E66.01 Morbid (severe) obesity due to excess calories; J98.11 Atelectasis; I10 Essential (primary) hypertension; Z77.22 Contact with and (suspected) exposure to environmental tobacco smoke (acute) (chronic); F41.9 Anxiety disorder, unspecified; R73.9 Hyperglycemia, unspecified; R65.20 Severe sepsis without septic shock; Z88.0 Allergy status to penicillin; H11.31 Conjunctival hemorrhage, right eye; E87.6 Hypokalemia; R21 Rash and other nonspecific skin eruption; Z23 Encounter for immunization
CPT/HCPCS: 36600; 70450; 71010; 71275; 76937; 80048; 80053; 82306; 82550; 82805; 82948; 83036; 83605; 83735; 84100; 84439; 84443; 84484; 85007; 85025; 85027; 85379; 87040; 87070; 87205; 87804; 90732; 93005; 93306; 93970; 94002; 94640; 94664; 96365; 96375; C9113; J0456; J0696; J1650; J1815; J2060; J2270; J2405; J2920; J2930; J3480; J7030; J7050; J7512; Q9967